=== PATIENT | male | born 1945 | race Caucasian/White ===

== ENCOUNTER 2022-06-18 06:38 | Day surgery (SDC) | payer OTHER, SELFPAY ==
[2022-06-04 09:38] VITALS: BMI 31.8
[2022-06-04 10:47] LABS: Hematocrit 39.5 % (39.0-52.0); Hemoglobin 12.6 g/dL (13.0-18.0); Mean Corp Hgb Conc. 31.9 g/dL (33.0-37.0); Mean Corpuscular Hgb 26.7 pg (27.0-31.0); Mean Corpuscular Volume 83.7 fL (80.0-94.0); Mean Platelet Volume 11.6 fL (7.4-10.4); Platelet Count 328 10^3/uL (130-400); Red Blood Cell Count 4.72 10^6/uL (4.70-6.10); Red Cell Dist. Width 13.5 % (11.5-14.5); White Blood Cell Count 7.3 10^3/uL (4.8-10.8)
[2022-06-04 11:21] LABS: Blood Urea Nitrogen 17 mg/dl (9-20); Calcium 9.3 mg/dl (8.4-10.2); Carbon Dioxide 27 mmol/L (22-30); Chloride 104 mmol/L (98-107); Estimated Creatinine Clearance 75 ml/min; Glomerular Filtration Rate > 60.0; Glucose 118 mg/dl (65-99); Potassium 4.9 mmol/L (3.5-5.1); Sodium 138 mmol/L (135-145)
[2022-06-18] VITALS (32 sets, daily range): BP systolic 108–174; BP diastolic 54–104; BMI 31.8
[2022-06-18 09:51] LABS: Glucose - Point of Care 94 mg/dl (65-99)
[2022-06-18] MEDS: CELEBREX 200 MG PO (09:53)
[2022-06-18] MEDS: TYLENOL 1000 MG PO (09:53)
[2022-06-18] MEDS: NORMOSOL-R/PLASMALYTE-A 1000 IV (09:54)
[2022-06-18 12:27] LABS: Glucose - Point of Care 97 mg/dl (65-99)
[2022-06-18] MEDS: NITROSTAT (SUBLINGUAL) 0.4 MG SL (12:43)
[2022-06-18] MEDS: DILAUDID 0.5 MG IV (12:56)
[2022-06-18] MEDS: LOW STRENGTH ASPIRIN 324 MG PO (13:48)
--- NOTE | 2022-06-18 14:02 | CON.CAR ---
Addendum entered and electronically signed by Porfirio Felix MD 06/18/22 15:10:
77-year-old male with history of coronary artery bypass grafting x2 back in 1993 who has not seen a blender machine operator in greater than 10 years, peripheral arterial disease, hypertension hypercholesterolemia, diabetes, CLAUDIA and dementia. Consult for chest
discomfort in the recovery room after arthroscopic knee surgery. Patient states he has been feeling fine and has had no issues with chest discomfort he does water walking in the pool and other exercise without symptoms. No recent complaints of
chest discomfort or shortness of breath. After returning to the recovery room from having arthroscopic surgery he reported midsternal chest discomfort which was an aching sensation. At times he felt the discomfort was worse with deep inspiration.
However he denied having shortness of breath. ECG showed some anterolateral ST changes which were new compared to the baseline ECG. Chest discomfort responded to nitroglycerin sublingual x1. He developed some recurrent chest discomfort and I gave
him a second nitroglycerin and patient probably had relief of his symptoms. He was given 4 baby aspirin and is placed on IV nitro. Currently chest pain-free and ECG shows sinus rhythm with improved ST changes. ECG now more consistent with
baseline ECG. Of note patient is not on aspirin at home but is maintained on Plavix 75 mg a day which was held prior to surgery.
-Overall symptoms consistent with angina. I reviewed issues with the patient and and explained the challenges in treating patient when he is immediately in the postoperative period for now we will just continue with aspirin nitrates. Would
hold off on IV heparin due to the increased risk of bleeding in a patient who is immediately postop. However if the patient becomes more unstable then would need to consider other measures including cardiac catheterization.
-Admit to IVU
-Serial troponins
-IV nitro
-Aspirin
-Statin
-Adequate postoperative pain control
Original Note:
Consultation
Consultation Request
Date/Time Consultation Requested: 06/18/22 13:45
Date/Time Consultation Performed: 06/18/22 13:50
Requesting Provider: Dr. Youngblood
Performing Provider: SEEMA Ayala
Reason for Consultation: Chest Pain
Medical History
-
Chief Complaint: Right Knee Pain
History of Present Illness:
Víctor Jimenez is a 77 year old male with CAD (s/p CABG), hypertension, dyslipidemia, GERD, CKD stage II, type 2 diabetes mellitus, PAD, CLAUDIA, and recent diagnosis of dementia presented today for scheduled right meniscus repair with Dr. Meyers.
Operative report is still pending per verbal report no intraoperative complications. He arrived in PACU complaining of chest discomfort. He reports it is a mid sternal, anterior, chest ache. This does not radiate. He reports associated shortness
of breath. He denies symptoms of nausea, diaphoresis, and palpitations. EKG shows some anterolateral changes. Cardiology has been called urgently to the bedside to evaluate patient.
He previously followed with Dr. Colmeanres but it appears he has not been seen in the office since 2011.
Past Medical History
Past Medical History: CAD, Cancer (prostate), GERD, HTN, Hypercholesterolemia, NIDDM, Renal Failure (CKD) and Other (PAD, CLAUDIA, vascular dementia)
Past Surgical History: Cardiac (CABG)
Social History
Tobacco: Former Smoker
Alcohol: Occasional
Drug: None
Personal:
Living: With Family
Employment: Retired
Family History
Family History: Reviewed & Not Pertinent
Allergies / Home Medications
Allergy/AdvReac Type Severity Reaction Status Date / Time
codeine Allergy CAUSES HIM Verified 06/18/22 09:27
TO SLEEP
FOR LONG
PERIODS OF
TIME
diazepam Allergy HIGHLY Verified 06/18/22 09:27
SENSITIVE
TO EFFECTS
Medication Instructions Recorded Confirmed Type
atorvastatin 10 mg tablet 20 mg PO DAILY High cholesterol 02/10/18 06/18/22 History
omeprazole 20 mg capsule,delayed 20 mg PO DAILY Gastrointestinal 02/10/18 06/18/22 History
release issue
quinapril 40 mg tablet 40 mg PO DAILY Blood pressure 02/10/18 06/18/22 History
verapamil 180 mg tablet,extended 180 mg PO DAILY Blood pressure 02/10/18 06/18/22 History
release
acetaminophen 325 mg tablet 650 mg PO Q4HPRN PRN mild pain 02/16/18 06/18/22 Rx
clopidogrel 75 mg tablet 75 mg PO DAILY 30 days 08/30/18 06/18/22 Rx
donepezil 10 mg tablet 10 mg PO DAILY 06/15/22 06/18/22 History
glimepiride 4 mg tablet 4 mg PO DAILY 06/15/22 06/18/22 History
semaglutide 0.25 mg or 0.5 mg (2 0.5 mg SC WEEKLY 06/15/22 06/18/22 History
mg/1.5 mL) subcutaneous pen
injector (Ozempic)
Review of Systems
-
History Source: Patient
All other systems: Negative unless noted
Cardiac: Chest Pain
Physical Exam
Vital Signs
Temp Pulse Resp BP Pulse Ox
97.3 F 74 15 159/71 100
06/18/22 12:17 06/18/22 13:30 06/18/22 13:30 06/18/22 13:30 06/18/22 13:30
Physical Exam
General: Well Developed, Well Nourished, No Apparent Distress and Comfortable
HEENT: Normocephalic and Moist Mucous Membranes
Respiratory: Clear and Non Labored Respirations
Cardiac: S1/S2, Regular Rhythm and Peripheral Edema (RLE)
Breast: Deferred by me
GI: Soft, Non Tender, Non Distended and Normal Bowel Sounds
Rectal: Deferred by Provider
Genito-urinary: No Costovertebral Tender
Musculoskeletal: No Clubbing and No Cyanosis
Skin: Warm and Dry
Neuro: AO x 3
Psych: Calm
Impression / Plan
-
Complex Tear of Right Medial Meniscus S/P Repair 06/18/[address] Meyers - per Ortho Surgery
Chest Pain
-Dull ache, no radiation, some associated SOB
-EKG with anterolateral changes
-S/P SL NTG, NTG gtt ordered
-ASA 324mg chewable x 1 now
-STAT troponin
CAD
-2V CABG 03/1994
-[facility] 12/2006: 100% proximal LAD, 30% mCx, 60% ostial OM1, 80% mid OM1, 60% mRCA, 100% ostial PDA, grafts patent
-He is on clopidogrel for his PAD, he does not take daily ASA
HTN - stable, follow on nitroglycerin
HLD
-Lipid panel (12/2021); TC 131, HDL 47, LDL 64, TG 111
-Continue atorvastatin 20mg for now
Type II DM - last Hgba1c 7.8% (12/2021), per primary
PAD, significant on the RLE - managed by Dr. Morrison
Vascular dementia - on donepezil
Data Reviewed
-
EKG: Tracing Personally Visualized and interpreted (As documented above)
Medical Tests (Nuc Med, Echo etc): Report Reviewed by me ([facility] as above)
Labs: Labs Reviewed by me
Old Records: Reviewed
[2022-06-18] MEDS: NITROGLYCERIN PREMIX 250 IV (14:03)
[2022-06-18 14:15] LABS: Hematocrit 38.1 % (39.0-52.0); Hemoglobin 12.3 g/dL (13.0-18.0); Mean Corp Hgb Conc. 32.3 g/dL (33.0-37.0); Mean Corpuscular Hgb 26.5 pg (27.0-31.0); Mean Corpuscular Volume 82.1 fL (80.0-94.0); Mean Platelet Volume 11.4 fL (7.4-10.4); Platelet Count 243 10^3/uL (130-400); Red Blood Cell Count 4.64 10^6/uL (4.70-6.10); Red Cell Dist. Width 13.8 % (11.5-14.5); White Blood Cell Count 6.1 10^3/uL (4.8-10.8)
[2022-06-18 14:24] LABS: Blood Urea Nitrogen 13 mg/dl (9-20); Calcium 8.9 mg/dl (8.4-10.2); Carbon Dioxide 23 mmol/L (22-30); Chloride 105 mmol/L (98-107); Estimated Creatinine Clearance 75 ml/min; Glomerular Filtration Rate > 60.0; Glucose 117 mg/dl (65-99); Potassium 4.4 mmol/L (3.5-5.1); Sodium 138 mmol/L (135-145)
[2022-06-18 14:35] LABS: Troponin I < 0.012 ng/ml
--- NOTE | 2022-06-18 15:33 | HPS.HSE ---
Family Physician
-
Family Physician: Ngozi Avila
Chief Complaint
-
chest pain
History of Present Illness
77 year old M with PMH s/f CAD s/p CAGB 1993, HTN, HLD, NIDDM, CKD, PAD s/p R femoral endarterectomy and vascular stenting, recent reported diagnosis of dementia, presents on 06/18/22 for out-patient R meniscus surgery and being admitted for
evaluation of post-operative chest pain.
Patient seen and examined at bedside in PACU. Patient is awake, in no distress and currently has no acute complaints. Denies any chest pain currently. Confirms that while in PACU patient developed pain in epigastric area, denies any radiating pain.
Denies any associated SOB, nausea/vomiting, diaphoresis. He does not think that this chest pain is similar to the chest pain that he was experiencing prior to CABG.
Medical History
Past Medical History
Past Medical History: Reports CAD, HTN, Hypercholesterolemia and NIDDM
Additional Past Medical History:
CAGB 1993, HTN, HLD, NIDDM, CKD, PAD s/p R femoral endarterectomy and vascular stenting, recent reported diagnosis of dementia
Past Surgical History: Reports Cardiac, Orthopedic and Other (vascular )
Social History
Tobacco: Former Smoker
Alcohol: Occasional
Family History
Family History: Not pertinent
Allergies / Home Medications
Allergies reflects when Allergies were last updated in [facility] [place].
Home Medications with original date entered in [facility] [place]
Allergy/Medication List:
as listed
Review of Systems
-
History Source: Patient
A 12 point ROS was completed and negative except as noted: Yes
Physical Exam
Vital Signs
Vital Signs
Temp Pulse Resp BP Pulse Ox
97.3 F 78 12 145/69 99
06/18/22 12:17 06/18/22 14:45 06/18/22 14:45 06/18/22 14:45 06/18/22 14:45
Physical Exam
General: No Apparent Distress
HEENT: NormoCephalic and Anicteric
Respiratory: Clear; No Wheezes
Cardiac: S1/S2 and Regular Rhythm; No Murmur
Breast: Deferred by me
GI: Soft, Non Tender and Non Distended
Rectal: Deferred by Provider
Genito-urinary: Deferred by me
Musculoskeletal: No Clubbing, No Cyanosis and Edema, Right Lower Extremity (pitting RLE edema )
Skin: Other (mild erythema RLE )
Neuro: Awake
Psych: Calm
Laboratory Results
-
06/18/22 13:50
06/18/22 13:50
Laboratory Results
Troponin I < 0.012 ng/ml 06/18/22 13:50
Data Reviewed
-
Medical Tests (Nuc Med, Echo, EKG etc): Image Personally Visualized and interpreted
Lab Data: Labs Reviewed by me (cbc, bmp )
Impression/Plan
-
IMPRESSION:
77 year old M with PMH s/f CAD s/p CAGB 1993, HTN, HLD, NIDDM, CKD, PAD s/p R femoral endarterectomy and vascular stenting, recent reported diagnosis of dementia, presents on 06/18/22 for out-patient R meniscus surgery and being admitted for
evaluation of post-operative chest pain.
PLAN:
- admit to IVU
- patient currently hemodynamically and clinically stable, no chest pain currently
- appreciate input and recommendations from cardiology - noted that chest pain responded to nitroglycerin SL x 1. Nitroglycerin infusion started in PACU. Continue aspirin 325 mg daily. Will hold home plavix for now. No heparin infusion at this time
per cardiology.
- trend troponin and EKG Q4 hours, first troponin negative
- continue statin
- hold home hypoglycemic agents, cover with SSI
- patient states that he is no longer taking donepezil
- continue remainder of home medications
FEN: cardiac
DVT ppx: lovenox
Code: full, confirmed on admission
[2022-06-18 16:45] LABS: Glucose - Point of Care 142 mg/dl (65-99)
--- NOTE | 2022-06-18 16:58 | CM ---
Chart reviewed. Met with patient, and daughter. Patient is very active independent of ADLs, lives with his in a [address], [address], and will occasionally use a cane. He does have a walker at home. Plan currently with no discharge needs.
Patient denying use of VN. Plan is patient will be discharge home with no needs.
[2022-06-18 18:35] LABS: Troponin I 0.018 ng/ml
[2022-06-18] MEDS: LOVENOX 40 MG SC (18:40)
--- NOTE | 2022-06-18 19:06 | PTCARENOTE ---
Pt arrived in PACU from OR, sedated but arouseable. ST depression noted on heart monitor, and as soon as pt could speak, reported chest pain immediately. Dr Butler notified, 12 lead EKG done, Dr Butler in to see pt, Ntg 0.4 mg SL given and Dilaudid
0.5 mg iv w/relief of chest pain. STdepression resolved, BP improved. By 1400 sx returned , Dr Felix in to see pt, Ntg gtt started titrated up to 20 mcs/min gradually, pt chest pain free since 1400. Hospitalist in to see pt , admitted to IVU,
family updated by Dr Felix.
--- NOTE | 2022-06-18 19:27 | PTCARENOTE ---
Rec'd Pt 1645, A,A+O, forgetful, denies pain, R knee yanira wrap intact, +2 Lower leg edema. Neurovascular check to RLE WNL.
[2022-06-18] MEDS: COLACE 100 MG PO (20:39)
[2022-06-18] MEDS: SENOKOT 17.2 MG PO (20:39)
[2022-06-18 20:55] LABS: Glucose - Point of Care 295 mg/dl (65-99)
--- NOTE | 2022-06-18 21:30 | PTCARENOTE ---
pt pleasant and cooperative. aaox3 but forgetful at times. denies knee pain or discomfort at this time. moving right knee without difficulty. yanira bandage intact. right leg with +2 edema. elevated on pillow. nerovascular checks wnl. pt denies chest
pain or discomfort. nitro drip infusing at 20mcg. pt states he is hungry because he did not eat all day. oxed lunch given to pt.no acute distress noted.
[2022-06-18 23:31] LABS: Troponin I 0.021 ng/ml
[2022-06-19] VITALS (7 sets, daily range): BP systolic 126–166; BP diastolic 59–87
[2022-06-19] MEDS: MAALOX 30 ML PO (04:08)
[2022-06-19 04:16] LABS: Hemoglobin 11.2 g/dL (13.0-18.0); Mean Corp Hgb Conc. 32.9 g/dL (33.0-37.0); Mean Corpuscular Hgb 26.5 pg (27.0-31.0); Mean Corpuscular Volume 80.6 fL (80.0-94.0); Mean Platelet Volume 11.3 fL (7.4-10.4); Platelet Count 248 10^3/uL (130-400); Red Blood Cell Count 4.22 10^6/uL (4.70-6.10); Red Cell Dist. Width 13.7 % (11.5-14.5); White Blood Cell Count 7.9 10^3/uL (4.8-10.8)
--- NOTE | 2022-06-19 04:45 | PTCARENOTE ---
pt requesting tums. states he gets reflux when he lies in bed. maalox already ordered and given with relief.
[2022-06-19 04:55] LABS: Blood Urea Nitrogen 19 mg/dl (9-20); Carbon Dioxide 26 mmol/L (22-30); Chloride 107 mmol/L (98-107); Estimated Creatinine Clearance 96 ml/min; Glomerular Filtration Rate > 60.0; Glucose 159 mg/dl (65-99); Potassium 4.3 mmol/L (3.5-5.1); Sodium 138 mmol/L (135-145)
[2022-06-19 05:09] LABS: Troponin I 0.017 ng/ml
--- NOTE | 2022-06-19 07:32 | W.PN.CARD.2 ---
Today's Communication / Plan
-
-Continue aspirin and IV nitro.
-If recurrent pain will add heparin. Patient would have some increased risk due to recent surgery but these issues have been reviewed with Dr. Meyers. We agreed IV heparin could be used if needed but since patient was pain-free on medical therapy
opted not to start heparin yesterday.
-Plan for cardiac catheterization on Tuesday
.
Assmnt/Subjective-Int Hx
-
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
discomfort in the recovery room after arthroscopic knee surgery.� Patient states he has been feeling fine and has had no issues with chest discomfort he does water walking in the pool and other exercise without symptoms.� No recent complaints of
chest discomfort or shortness of breath.� After returning to the recovery room from having arthroscopic surgery he reported midsternal chest discomfort which was an aching sensation.� Chest discomfort responded to nitroglycerin sublingual x1.� He
developed some recurrent chest discomfort and I gave him a second nitroglycerin and patient probably had relief of his symptoms.� He was given 4 baby aspirin and is placed on IV nitro.� ECG improved
CP/angina -
-postoperative angina 06/18/2022 in recovery room after arthroscopic knee surgery.
-Patient had transient ECG changes which improved. ECG 06/19/2022 with residual T wave abnormality anteriorly
-Peak troponin 0.021
-Continue aspirin and IV nitro.
-If recurrent pain will add heparin. Patient would have some increased risk due to recent surgery but these issues have been reviewed with Dr. Meyers. We agreed IV heparin could be used if needed but since patient was pain-free on medical therapy
opted not to start heparin yesterday.
-Plan for cardiac catheterization on Tuesday
.
Postop knee surgery. Issues reviewed with Dr. Meyers yesterday. Can initiate anticoagulation if needed
HTN - stable, follow on nitroglycerin
HLD -statin
-
Type II DM - last Hgba1c 7.8% (12/2021), per primary
PAD, significant on the RLE - managed by Dr. Morrison
Vascular dementia - on donepez
Interval History
Interval History
Date of Service: June 19, 2022
Chief Complaint
-
Chief Complaint: CAD F/U
Review of Systems
Review of Systems
Review of Systems: Negative for Chest Pain, Negative for Dyspnea and Neg Nausea +/or Vomiting
Physical Exam
Vital Signs
Vital Signs
Temp Pulse Resp BP Pulse Ox
97.9 F 71 17 126/73 98
06/19/22 02:37 06/19/22 05:45 06/19/22 02:37 06/19/22 02:39 06/19/22 02:37
Body Mass Index (BMI): 31.8
Physical Exam
Constitutional: No acute distress
EENT: Anicteric
Cardiovascular: Rhythm & rate is regular
Respiratory: Respiratory effort normal
GI: Soft
Neuro/Psych: Alert
Other: Other (Right lower extremity, knee postop mild lower extremity edema)
Data Reviewed
-
Results:
I&O
06/17/22 06/18/22 06/19/22 06/20/22
06:59 06:59 06:59 06:59
Intake Total 102 / 102
Output Total 350 / 350
Balance -248 / -248
EKG Tracings: Tracing reviewed
Telemetry Tracings: I personally reviewed
Echocardiogram: Report reviewed
Medical Test Reports: I reviewed
Labs:
06/19/22 04:01
06/19/22 04:01
LAB Results
06/18/22 06/18/22 06/18/22
13:50 18:05 23:00
Troponin I < 0.012 0.018 D 0.021
06/19/22
04:01
Troponin I 0.017
Magnesium 2.0 mg/dl (1.6-2.3) 06/19/22 04:01
Reviewed with clinician: Nurse
--- NOTE | 2022-06-19 08:24 | W.PN.HOSP.TC ---
Today's Communication/Plan
-
continue asa and IV nitro, [facility] Tuesday
Assessment / Plan
Assessment / Plan
77 year old M with PMH s/f CAD s/p CAGB 1993, HTN, HLD, NIDDM, CKD, PAD s/p R femoral endarterectomy and vascular stenting, recent reported diagnosis of dementia, presents on 06/18/22 for out-patient R meniscus surgery and being admitted for
evaluation of post-operative chest pain.
PLAN:
- hemodynamically and clinically stable, no chest pain
- appreciate input and recommendations from cardiology - continue aspirin and IV nitro. For [facility] Tuesday06/21/22. Continue home verapamil, hold home ACEI while on nitro.
- continue statin
- troponin peaked overnight
- per ortho WBAT RLE, orthopedic surgery o/p follow up in 2 weeks. oxycodone prn
- hold home hypoglycemic agents, cover with SSI
- patient states that he is no longer taking donepezil�
- continue remainder of home medications
FEN: cardiac
DVT ppx: lovenox
Code: full, confirmed on admission
Anticipated Discharge: > 48 hours
Subjective/Interval History
-
Date of Service: June 19, 2022
no acute events overnight
patient seen and examined at bedside
he is awake, in no distress, no complaints
Objective Data
-
Labs:
Laboratory Results
06/19/22 06/19/22
04:01 04:01
WBC 7.9
Hgb 11.2 L
Hct 34.0 L
Plt Count 248
Sodium 138
Potassium 4.3
Chloride 107
Carbon Dioxide 26
BUN 19
Creatinine 0.7
Glucose 159 H
Calcium 9.0
Vital Signs:
Vital Signs
Temp Pulse Resp BP Pulse Ox
97.7 F 71 17 126/73 98
06/19/22 07:52 06/19/22 05:45 06/19/22 02:37 06/19/22 02:39 06/19/22 02:37
I&O
06/18/22 06/19/22 06/20/22
06:59 06:59 06:59
Intake Total 102 / 102
Output Total 350 / 350
Balance -248 / -248
Review of Systems
-
History Source: Patient
All other systems: Reviewed and negative
Physical Exam
-
General: No Apparent Distress
HEENT: Normocephalic and Atraumatic
Respiratory: Clear to Auscultation; Negative Wheezes
Cardiac: Regular Rhythm and S1/S2
Breast: Deferred by me
GI: Soft, Nontender and Nondistended
Rectal: Deferred by Provider
Genito-urinary: Deferred by me
Musculoskeletal: No Clubbing, No Cyanosis, No Edema and Other (diminished R DP pulse)
Skin: Warm and Other (mild chronic erythema above R ankle)
Neuro: Awake
Psych: Calm
Data Reviewed
-
Labs: Labs Reviewed by me (cbc, bmp, troponin )
[2022-06-19 08:36] LABS: Glucose - Point of Care 107 mg/dl (65-99)
[2022-06-19] MEDS: CALAN EXTENDED RELEASE 180 MG PO (08:56)
[2022-06-19] MEDS: LIPITOR 20 MG PO (08:56)
[2022-06-19] MEDS: SENOKOT 17.2 MG PO (08:56)
[2022-06-19] MEDS: ASPIR LOW (ENTERIC COATED) 81 MG PO (08:56)
[2022-06-19] MEDS: PROTONIX 40 MG PO (08:57)
[2022-06-19] MEDS: COLACE 100 MG PO (08:58)
--- NOTE | 2022-06-19 12:12 | W.PN.ORTHO ---
Today's Communication / Plan
-
Assessment
.
Distal Motor Intact: Yes
Dressing:
Clean, dry and intact.
Assessment:
77M POD1 sp right knee arthroscopic partial meniscectomy admitted for EKG changes and angina symptoms. He is doing well clinically. Reviewed cardiology note. Pain is well controlled. Dispo per medical/cardiology team. WBAT RLE. Dressing to remain in
place. He will follow up with Dr. Meyers in 2 weeks for wound check.
Jesus Wells MD
Plan
.
Activity:
Out of bed.
PT/OT
Subjective
.
.:
Patient resting comfortably.
Vital Signs and Labs
.
Vital Signs and Labs:
Lab Results
06/19/22 04:01
06/19/22 04:01
Temp Pulse Resp BP Pulse Ox
97.4 F 79 20 154/87 99
06/19/22 11:38 06/19/22 11:38 06/19/22 11:38 06/19/22 07:38 06/19/22 11:38
Physical Exam
-
Resting comfortably in bed. Surgical dressings CDI. Fires ehl/fhl/ta/gs; silt ehl/fhl/ta/gs. Toes wwp
[2022-06-19 13:21] LABS: Glucose - Point of Care 155 mg/dl (65-99)
--- NOTE | 2022-06-19 14:56 | PTCARENOTE ---
06/19/22 0800 Received patient in bed with IV Nitroglycerin infusing at 20mcg/kg/min (3ml/hr). supervisor dry paste reading NSR. Pt AAO x3, forgetful at times (Hx dementia). Reviewed plan of care. VSS. Will continue to monitor throughout shift.
[2022-06-19 16:21] LABS: Glucose - Point of Care 130 mg/dl (65-99)
[2022-06-19] MEDS: LOVENOX 40 MG SC (17:29)
[2022-06-19] MEDS: SENOKOT PO (21:10)
[2022-06-19] MEDS: COLACE PO (21:10)
[2022-06-19 22:37] LABS: Glucose - Point of Care 106 mg/dl (65-99)
[2022-06-20] VITALS (8 sets, daily range): BP systolic 139–192; BP diastolic 64–87; BMI 31.6
--- NOTE | 2022-06-20 00:01 | PTCARENOTE ---
Pt awake,alert forgetful. Bed alarm placed because of pts impulsive behavior. Often gets oob to go to bathroom forgetting he's attached to iv.
Gait is steady when up with nursing. RLE with yanira bandage in place. + 2 swelling noted below the knee. Elevated on pillow while in bed. pedal pulses good by Doppler. Pt denies knee pain. Sinus on telemetry. Pt denies cp.
--- NOTE | 2022-06-20 05:10 | PTCARENOTE ---
PT awoken around 0430, bed alarm sounding when pt attempted to exit bed without assistance. When nursing arrived at bedside pt was frightened, anxious and extremely confused. Pt remains confused at this time oriented to name and birthday only. Pt
unable to give year, his own age(although close). Pt was unaware he had surgery. When hearing voices of nurses in [place] pt became frightened, calling out for his . Assisted calling on cell after pt was unable to reorient . Pt's stated
she would drive right over. Nursing remaining at bedside until arrives.
[2022-06-20 05:25] LABS: Hematocrit 36.4 % (39.0-52.0); Hemoglobin 11.4 g/dL (13.0-18.0); Mean Corp Hgb Conc. 31.3 g/dL (33.0-37.0); Mean Corpuscular Hgb 26.7 pg (27.0-31.0); Mean Corpuscular Volume 85.2 fL (80.0-94.0); Mean Platelet Volume 11.4 fL (7.4-10.4); Platelet Count 258 10^3/uL (130-400); Red Blood Cell Count 4.27 10^6/uL (4.70-6.10); Red Cell Dist. Width 14.1 % (11.5-14.5); White Blood Cell Count 9.3 10^3/uL (4.8-10.8)
[2022-06-20 05:34] LABS: Blood Urea Nitrogen 16 mg/dl (9-20); Calcium 9.2 mg/dl (8.4-10.2); Carbon Dioxide 25 mmol/L (22-30); Chloride 108 mmol/L (98-107); Estimated Creatinine Clearance 84 ml/min; Glomerular Filtration Rate > 60.0; Glucose 93 mg/dl (65-99); Magnesium 2.1 mg/dl (1.6-2.3); Potassium 4.2 mmol/L (3.5-5.1); Sodium 138 mmol/L (135-145)
[2022-06-20 06:11] LABS: Glucose - Point of Care 87 mg/dl (65-99)
--- NOTE | 2022-06-20 06:27 | PTCARENOTE ---
Pt's came in at 0530 to pts bedside. pt reoriented slowly but pt is currently back at baseline. stated pt was diagnosed with dementia but he never reacted like this. At present pt is smiling and resting comfortably.
--- NOTE | 2022-06-20 07:35 | W.PN.CARD.2 ---
Today's Communication / Plan
-
Stable overnight with no recurrent angina.
Change IV nitro to Nitropaste
Plan for cardiac catheterization tomorrow. Note patient has significant peripheral arterial disease and prior revascularization by Dr. Morrison. Prior history of two-vessel bypass including RAMIREZ to the LAD. Left arm access may be preferred.
Assmnt/Subjective-Int Hx
-
77-year-old male with history of coronary artery bypass grafting x2 back in 1993 who has not seen a home visits nurse in greater than 10 years, peripheral arterial disease, hypertension hypercholesterolemia, diabetes, CLAUDIA and dementia.� Consult for chest
discomfort in the recovery room after arthroscopic knee surgery.� Patient states he has been feeling fine and has had no issues with chest discomfort he does water walking in the pool and other exercise without symptoms.� No recent complaints of
chest discomfort or shortness of breath.� After returning to the recovery room from having arthroscopic surgery he reported midsternal chest discomfort which was an aching sensation.� Chest discomfort responded to nitroglycerin sublingual x1.� He
developed some recurrent chest discomfort and I gave him a second nitroglycerin and patient probably had relief of his symptoms.� He was given 4 baby aspirin and is placed on IV nitro.� ECG improved
CP/angina -
-postoperative angina 06/18/2022 in recovery room after arthroscopic knee surgery.
-Patient had transient ECG changes which improved. ECG 06/19/2022 with residual T wave abnormality anteriorly
-Peak troponin 0.021
-Continue aspirin and IV nitro.
-If recurrent pain will add heparin. Patient would have some increased risk due to recent surgery but these issues have been reviewed with Dr. Meyers. We agreed IV heparin could be used if needed but since patient was pain-free on medical therapy
opted not to start heparin yesterday.
-Plan for cardiac catheterization on Tuesday
.
Postop knee surgery. Issues reviewed with Dr. Meyers yesterday. Can initiate anticoagulation if needed
HTN - stable, follow on nitroglycerin
HLD -statin
Dementia. Some confusion in the surveillance officer hours this morning. Patient was disoriented patient's came in and is currently at bedside and patient reoriented.-
Type II DM - last Hgba1c 7.8% (12/2021), per primary
PAD, significant on the RLE - managed by Dr. Morrison
Vascular dementia - on donepez
Interval History
Interval History
Date of Service: June 20, 2022
Chief Complaint
-
Chief Complaint: CAD F/U
Review of Systems
Review of Systems
Review of Systems: Negative for Chest Pain and Negative for Dyspnea
Physical Exam
Vital Signs
Vital Signs
Temp Pulse Resp BP Pulse Ox
98 F 63 20 192/70 97
06/20/22 07:28 06/20/22 05:15 06/20/22 07:28 06/20/22 04:47 06/20/22 07:28
06/19/22 06/20/22 06/21/22
06:59 06:59 06:59
Actual Weight 90.9 kg
Body Mass Index (BMI): 31.6
Physical Exam
Constitutional: No acute distress
Cardiovascular: Rhythm & rate is regular
Respiratory: Respiratory effort normal
GI: Soft
Data Reviewed
-
Results:
I&O
06/18/22 06/19/22 06/20/22 06/21/22
06:59 06:59 06:59 06:59
Intake Total 102 / 102 240 / 240
Output Total 350 / 350
Balance -248 / -248 240 / 240
Telemetry Tracings: I personally reviewed
Medical Test Reports: I reviewed
Labs:
06/20/22 05:07
06/20/22 05:07
LAB Results
06/18/22 06/18/22 06/18/22
13:50 18:05 23:00
Troponin I < 0.012 0.018 D 0.021
06/19/22
04:01
Troponin I 0.017
Magnesium 2.1 mg/dl (1.6-2.3) 06/20/22 05:07
Reviewed with clinician: Nurse and Other (Reviewed issues with patient's at bedside.)
[2022-06-20] MEDS: NITRO-BID 1 INCH TOPICAL ×4 (08:11→23:22)
[2022-06-20] MEDS: SENOKOT 17.2 MG PO (08:12)
[2022-06-20] MEDS: ASPIR LOW (ENTERIC COATED) 81 MG PO (08:12)
[2022-06-20] MEDS: COLACE 100 MG PO (08:12)
[2022-06-20] MEDS: CALAN EXTENDED RELEASE 180 MG PO (08:12)
[2022-06-20] MEDS: PROTONIX 40 MG PO (08:12)
[2022-06-20] MEDS: LIPITOR 20 MG PO (08:12)
--- NOTE | 2022-06-20 09:17 | W.PN.HOSP.TC ---
Today's Communication/Plan
-
[facility] tomorrow
Assessment / Plan
Assessment / Plan
77 year old M with PMH s/f CAD s/p CAGB 1993, HTN, HLD, NIDDM, CKD, PAD s/p R femoral endarterectomy and vascular stenting, recent reported diagnosis of dementia, presents on 06/18/22 for out-patient R meniscus surgery and being admitted for
evaluation of post-operative chest pain.
PLAN:
- hemodynamically and clinically stable, no chest pain
- appreciate input and recommendations from cardiology - continue aspirin and changed IV nitro to nitropaste . For [facility] Tuesday06/21/22. Continue home verapamil, hold home ACEI while on nitro.
- continue statin
- per ortho WBAT RLE, orthopedic surgery o/p follow up in 2 weeks. oxycodone prn
- hold home hypoglycemic agents, cover with SSI
- patient states that he is no longer taking donepezil�
- continue remainder of home medications
FEN: cardiac, NPO PMN
DVT ppx: lovenox
Code: full, confirmed on admission
Anticipated Discharge: > 48 hours
Subjective/Interval History
-
Date of Service: June 20, 2022
noted overnight event of confusion, no other acute events noted
patient seen and examined at bedside this morning, also present at bedside
patient is awake, in no distress, no acute complaints. No chest pain.
Objective Data
-
Labs:
Laboratory Results
06/20/22 06/20/22
05:07 05:07
WBC 9.3
Hgb 11.4 L
Hct 36.4 L
Plt Count 258
Sodium 138
Potassium 4.2
Chloride 108 H
Carbon Dioxide 25
BUN 16
Creatinine 0.8
Glucose 93
Calcium 9.2
Vital Signs:
Vital Signs
Temp Pulse Resp BP Pulse Ox
98 F 74 20 139/64 95
06/20/22 07:28 06/20/22 08:15 06/20/22 07:28 06/20/22 07:31 06/20/22 07:31
I&O
06/19/22 06/20/22 06/21/22
06:59 06:59 06:59
Intake Total 102 / 102 240 / 240
Output Total 350 / 350
Balance -248 / -248 240 / 240
Review of Systems
-
History Source: Patient
All other systems: Reviewed and negative
Physical Exam
-
General: No Apparent Distress
HEENT: Normocephalic and Atraumatic
Respiratory: Clear to Auscultation; Negative Wheezes
Cardiac: Regular Rhythm and S1/S2
Breast: Other
GI: Soft, Nontender and Nondistended
Rectal: Deferred by Provider
Genito-urinary: Deferred by me
Musculoskeletal: No Clubbing, No Cyanosis, Edema, Right Lower Extrem (RLE>LLE 1-2+ b/l pitting edema, distal extremities warm, b/l DP pulses intact ) and Edema, Left Lower Extrem
Skin: Warm
Neuro: Awake
Psych: Calm
Data Reviewed
-
Labs: Labs Reviewed by me (cbc, bmp )
--- NOTE | 2022-06-20 11:31 | PTCARENOTE ---
06/20/22 0810 Received patient resting comfortably in bed. Pt is pleasant, AAO x3. 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 Pt received with IV Nitroglycerin infusing at 20mcg/min (3ml/hr). VSS. Patient with no complaints this am.
Will monitor throughout shift.
[2022-06-20 12:31] LABS: Glucose - Point of Care 97 mg/dl (65-99)
--- NOTE | 2022-06-20 16:56 | PTCARENOTE ---
06/20/[address] Meyers in regards to patient's R knee Krish bandage. Per Dr. Meyers , the krish bandage can be removed. I removed the bandage and 4 x4 and there are 3 incisions with steri strips intact, no drainage, no ecchymosis. Patient
with no complaints of pain. Pt has Doppler pedal pulses present.
[2022-06-20 17:15] LABS: Glucose - Point of Care 115 mg/dl (65-99)
[2022-06-20] MEDS: LOVENOX 40 MG SC (17:15)
[2022-06-20] MEDS: SENOKOT PO (19:55)
[2022-06-20] MEDS: COLACE PO (19:55)
[2022-06-20 21:41] LABS: Glucose - Point of Care 138 mg/dl (65-99)
[2022-06-21] VITALS (14 sets, daily range): BP systolic 142–186; BP diastolic 64–83; BMI 31.0
[2022-06-21 03:18] LABS: Hematocrit 34.7 % (39.0-52.0); Hemoglobin 10.9 g/dL (13.0-18.0); Mean Corp Hgb Conc. 31.4 g/dL (33.0-37.0); Mean Corpuscular Hgb 26.5 pg (27.0-31.0); Mean Corpuscular Volume 84.4 fL (80.0-94.0); Mean Platelet Volume 11.5 fL (7.4-10.4); Platelet Count 232 10^3/uL (130-400); Red Blood Cell Count 4.11 10^6/uL (4.70-6.10); Red Cell Dist. Width 14.2 % (11.5-14.5); White Blood Cell Count 6.3 10^3/uL (4.8-10.8)
[2022-06-21 03:42] LABS: Blood Urea Nitrogen 17 mg/dl (9-20); Calcium 8.7 mg/dl (8.4-10.2); Carbon Dioxide 28 mmol/L (22-30); Chloride 107 mmol/L (98-107); Estimated Creatinine Clearance 96 ml/min; Glomerular Filtration Rate > 60.0; Glucose 89 mg/dl (65-99); Magnesium 1.9 mg/dl (1.6-2.3); Potassium 4.3 mmol/L (3.5-5.1); Sodium 138 mmol/L (135-145)
--- NOTE | 2022-06-21 04:06 | PTCARENOTE ---
Pt denies complaints of chest pain overnight. SR on tele. Pt occasionally wakes up anxious and confused to time and place but can be reoriented. Bed alarm on and activated. Pt uses call montoya at times. Reminded of plan of care, NPO since midnight for
cardiac cath today.
[2022-06-21] MEDS: NITRO-BID 1 INCH TOPICAL (06:30)
[2022-06-21] MEDS: CALAN EXTENDED RELEASE 180 MG PO (06:34)
[2022-06-21 06:47] LABS: Glucose - Point of Care 96 mg/dl (65-99)
--- NOTE | 2022-06-21 07:19 | W.PN.HOSP.TC ---
Today's Communication/Plan
-
Cath
possible dc pending on cath result
Assessment / Plan
Assessment / Plan
77 year old M with PMH s/f CAD s/p CAGB 1993, HTN, HLD, NIDDM, CKD, PAD s/p R femoral endarterectomy and vascular stenting, recent reported diagnosis of dementia, presents on 06/18/22 for out-patient R meniscus surgery and being admitted for
evaluation of post-operative chest pain.
# Angina
No recurrent chest pain
no sob
no cough
- hemodynamically and clinically stable,
- appreciate input and recommendations from cardiology - continue aspirin and Plavix. [facility] Tuesday06/21/22. Continue home verapamil.
- continue statin
# Primary HTN
no headache
no chest pain
c/w Verapamil
ok to hold ROSSI while pursuing heart cath.
# type II DM
no hypoglycemia
# PAD, significant on the RLE -
no evidence of limb ischemia
managed by Dr. Morrison
# Vascular dementia -
- patient states that he is no longer taking donepezil�
# Post Right Knee surgery
- per ortho WBAT RLE, orthopedic surgery o/p follow up in 2 weeks. oxycodone prn
FEN: cardiac, NPO PMN
DVT ppx: lovenox
Code: full, confirmed on admission
Anticipated Discharge: Within 24 hours
Subjective/Interval History
-
Date of Service: June 21, 2022
No chest pain
no sob
he wants to go home after cath if possible
Objective Data
-
Labs:
Laboratory Results
06/21/22 06/21/22
02:56 02:56
WBC 6.3
Hgb 10.9 L
Hct 34.7 L
Plt Count 232
Sodium 138
Potassium 4.3
Chloride 107
Carbon Dioxide 28
BUN 17
Creatinine 0.7
Glucose 89
Calcium 8.7
Vital Signs:
Vital Signs
Temp Pulse Resp BP Pulse Ox
98 F 78 18 153/82 98
06/21/22 06:44 06/21/22 09:00 06/21/22 06:44 06/21/22 06:48 06/21/22 02:47
I&O
06/20/22 06/21/22 06/22/22
06:59 06:59 06:59
Intake Total 240 / 240
Output Total 1075 / 1075
Balance 240 / 240 -1075 / -1075
Review of Systems
-
History Source: Patient
All other systems: Reviewed and negative
Physical Exam
-
General: Well Nourished, No Apparent Distress and Comfortable
HEENT: Atraumatic and Moist Mucous Membranes
Respiratory: Clear to Auscultation
Cardiac: S1/S2 and Murmur (right sided )
GI: Soft, Nontender and Nondistended
Rectal: Negative Maroon Stools
Genito-urinary: Clear Urine
Musculoskeletal: No Cyanosis and No Edema
Skin: Warm and Dry; Negative Rash
Neuro: AO x 3 and Nonfocal/Grossly Intact; Negative Slurred Speech or Facial Droop
Hematologic / Lymphatic: No Lymphadenopathy
Psych: Calm and Intact Judgement/Insight
[2022-06-21] MEDS: PROTONIX 40 MG PO (07:57)
[2022-06-21] MEDS: ASPIR LOW (ENTERIC COATED) 81 MG PO (07:57)
[2022-06-21] MEDS: LIPITOR PO (07:59)
[2022-06-21] MEDS: COLACE PO (08:00)
[2022-06-21] MEDS: SENOKOT PO (08:00)
--- NOTE | 2022-06-21 08:55 | PTCARENOTE ---
assumed care of pt from previous shift RN, sinus rhythm on tele, VSS, + peripheral pulses, +1 edema to lower extremities, pt denies CP or SOB. Lungs diminished bilaterally. Pt remains NPO for procedure, voiding spontaneously. PIV flushes easily.
Plan of care reviewed w pt and questions encouraged.
08:45 pt sent to [facility].
--- NOTE | 2022-06-21 10:34 | ITS.CL.ANGIO ---
Button Buttonhole Marker - Angioplasty
Angioplasty
Procedure Report:
CARDIAC CATHETERIZATION REPORT
Date of Procedure: 06/21/2022
Referring: Porfirio Felix M.D.
INDICATION: Unstable angina after orthopedic surgery.
PROCEDURE:
1. Left heart catheterization.
2. Coronary angiography.
3. Bypass angiography.
4. IFR of the proximal circumflex.
5. Successful PCI of the proximal circumflex.
ACCESS:
6 Malaysian left radial artery.
CATHETERS:
1. 5 Malaysian JEREMIAS.
2. 5 Malaysian JL 4.
3. 5 Malaysian JR4.
4. 6 Malaysian EBU 4.0 guide.
HEMODYNAMIC DATA
Weight (kg): 90.7
AO (s/d/x, mmHg): 154/65/100
LV (s/x mmHg): 157/17
LEFT VENTRICULOGRAPHY: Not performed.
CORONARY ANGIOGRAPHY
Dominance: Codominant.
Left Main: Normal size, trifurcating vessel. There is no coronary artery disease.
LAD: Normal size vessel giving rise to 1 significant diagonal. The vessel is chronically totally occluded in its proximal margin. The diagonal is occluded at its origin. The distal LAD is supplied by a patent RAMIREZ graft. The diagonal is
supplied by a patent vein graft.
Ramus: Small size vessel that is chronically totally occluded in its proximal third. The distal vessel supplied by collaterals from the bypass to diagonal.
Circumflex: Large size, codominant vessel giving rise to 1 large marginal then terminating as a partial LPDA supplying the proximal inferior interventricular septal perforators. There is a 70%, calcified lesion in the proximal circumflex,
immediately prior to the takeoff of OM1.
RCA: Normal size, codominant vessel. The vessel is diffusely diseased and chronically totally occluded at its distal margin. The RPDA supplies the distal inferior septal perforators and is supplied by collaterals from the obtuse marginal.
BYPASS GRAFT ANGIOGRAPHY
RAMIREZ to LAD: Normal size graft with end to side anastomosis to the distal LAD. There is no stenosis or evidence of graft degeneration.
SVG to D1: Normal size graft with aortic graft marker and end-to-side anastomosis to the first diagonal. There is no evidence of stenosis or graft degeneration.
INTERVENTION(S)
1. IFR of the 70% calcified circumflex lesion, demonstrating occlusive disease (iFR = 0.88).
2. Successful PCI of the 70% circumflex lesion (Xience Skypoint 3.5 x 15 KAREL, 3.5 x 8 KAREL, postdilated with a 3.5 x 15 NC balloon) with reduction in stenosis to 0%, maintaining VARUN-3 flow.
Narrative:
The decision was made to perform physiologic testing. The diagnostic catheter was removed over a wire and exchanged for a(n) 6 Malaysian EBU 4.0 guiding catheter. The guiding catheter was advanced into the ascending aorta and seated in the left main
coronary artery. Additional heparin was given to obtain an ACT greater than 250 seconds. An iFR wire was zeroed outside of the body, then inserted into the guiding sheath. The wire was advanced and the transducer was normalized just outside of the
guiding catheter tip. The wire was advanced into the distal circumflex. Three iFR measurements were taken. The lesion was determined to be occlusive (0.82). The Verrata wire was withdrawn but found to have significant drift on pullback. The wire
was rezeroed and readvanced. Three additional IFR measurements were taken, confirming that the lesion was occlusive (iFR = 0.88).
The decision was made to proceed with percutaneous coronary intervention. Additional heparin was given and a Power Turn Flex wire was advanced into the distal circumflex. The 70%, calcified proximal circumflex lesion was predilated with a 2.0 x 12
semi-compliant balloon to 12 yaakov. This semicompliant balloon was removed and a 3.0 x 12 semicompliant balloon was advanced. The lesion was dilated, but did not allow for balloon expansion with a significant waist. The 3.0 x 12 semicompliant
balloon was removed and a 3.0 x 12 noncompliant balloon was advanced. The lesion was dilated again, finally releasing at 20 yaakov. The noncompliant balloon was removed and a Xience Skypoint 3.5 x 15 drug-eluting stent was advanced. The stent was
deployed at 12 atmospheres. The stent balloon was removed. Review of angiography showed good stent apposition and expansion, though there was concerned that the stent had migrated backwards and the distal aspect of the lesion was not covered
adequately. The decision was made to extend the stented segment. A 3.5 x 8 drug-eluting stent was advanced. Meticulous care was taken while positioning the second stent. The distal aspect of the stent felt short of the bifurcation of the true
circumflex and obtuse marginal while the proximal margin of the stent sat within the distal aspect of the first stent with adequate overlap. The second stent was deployed at 12 yaakov. A 3.5 x 15 noncompliant balloon was advanced into the stent and
the stent was postdilated to 16 atmospheres. Angiography was performed in orthogonal views, confirming good stent expansion and an excellent angiographic result. The coronary wire was withdrawn and the guide was disengaged from the artery. The
catheter was removed over a standard J-wire.
Closure Device: Vascular band.
Radiation (mGy): 1373.05
DAP (cm2.Gy): 106.48
Fluoroscopy time (minutes): 12.5
CONCLUSIONS
1. 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
70%, densely calcified proximal circumflex lesion status post successful PCI (Xience Skypoint 3.5 x 15 KAREL, 3.5 x 8 KAREL, postdilated with a 3.5 x 15 NC balloon) with reduction in stenosis to 0%, maintaining VARUN-3 flow.
2. Mildly elevated filling pressures (LVEDP = 17 mmHg at 90.7 kg).
RECOMMENDATIONS:
1. Expectant management after cardiac catheterization via left radial approach.
2. Limited weight bearing on the left wrist for one week.
3. Dual antiplatelet therapy. Initially, the patient was given ticagrelor in the Button Buttonhole Marker. This will be converted to clopidogrel and aspirin tomorrow.
4. Guideline directed medical therapy as hemodynamics will tolerate.
5. Increase atorvastatin to 40 mg daily.
6. Echocardiogram ordered and pending.
7. Referral to cardiac rehab.
Copy to: Porfirio Felix M.D., Ngozi Avila M.D., Db Moss M.D., Dawson Meyers M.D.
Jeet Lee DO, FACC, FACP
--- NOTE | 2022-06-21 11:15 | W.PN.CARD.2 ---
Today's Communication / Plan
-
S/P catheterization and PCI.
DAPT. Initially got ticagrelor in the lab. Load with clopidogrel tomorrow morning.
Start aspirin 81 mg daily.
Start carvedilol 12.5 mg BID and monitor BP response.
Restart lower dose of ACEI.
Echocardiogram ordered and pending.
Increase atorvastatin to 40 mg daily.
Referral to cardiac rehab.
Assmnt/Subjective-Int Hx
-
Impression/Plan: 77-year-old male with history of coronary artery bypass grafting x2 back in 1993 (RAMIREZ to LAD, SVG to diagonal) lost to cardiology follow up, peripheral arterial disease, hypertension hypercholesterolemia, diabetes, CLAUDIA and
dementia admitted for chest pain/unstable angina after right meniscus repair.
#Chest pain/Unstable angina
-Postoperative angina 06/18/2022 in recovery room after arthroscopic knee surgery.
-ECG shows T wave in the anterolateral precordium, now improved.
-Peak troponin 0.021
-Cardiac catheterization today revealed patent bypass grafts (RAMIREZ to LAD, SVG to D1) to SAMPLE PULLER of LAD and D1, collateralization of a codominant RCA SAMPLE PULLER and a densely calcified, 70% proximal LCx lesion.
-iFR of LCx was positive (0.88) leading to successful PCI (overlapping Xience Skypoint 3.5 x 15 KAREL, 3.5 x 8 KAREL, post dilated with a 3.5 NC balloon).
-Patient was previously on clopidogrel for CVA/vascular cognitive impairment. He was given ticagrelor 180 mg at the time of PCI. We will re-convert to clopidogrel tomorrow.
-Aspirin 81 mg daily.
-Start carvedilol 12.5 mg BID.
-Echocardiogram ordered/pending.
-Referral to cardiac rehab (can be done after PT/OT for knee).
.
#Right medial meniscus tear
-S/P meniscus repair via Dr. Meyers, 06/18/2022.
-Further management per orthopedic surgery.
#HTN
-Hypertensive overnight.
-Continue verapamil.
-Discontinue nitroglycerin.
-Monitor response to carvedilol.
#HLD
-Increase atorvastatin to 40 mg daily.
-Goal LDL < 70.
#Dementia
-Some confusion in the sample card maker hours this morning. Patient was disoriented patient's came in and is currently at bedside and patient reoriented.
-Clopidogrel, donepezil.
-Other management per primary team.
#NIDDM2
-Last Hgba1c 7.8% (12/2021).
-Outpatient medications include semiglutide, glimepiride.
#PAD
-S/P Right common femoral to profunda to popliteal bypass.
-Left common iliac stent, possible chronic dissection (on prior CTA).
-[employer] [employer] DEAN of BTK popliteal/anterior tibial artery (08/31/2018).
Subjective/Interval History:
No acute events.
No subjective complaints.
Hypertensive to 180 mmHg.
DATA:
Cardiac catheterization/PCI, 06/21/2022:
CONCLUSIONS
1.� Codominant circulation with chronic total occlusion of the right coronary artery, chronic total occlusion of the LAD and diagonal with patent RAMIREZ and vein graft supply, a SAMPLE PULLER of the ramus collateralized by the obtuse marginal and an occlusive
70%, densely calcified proximal circumflex lesion status post successful PCI (Xience Skypoint 3.5 x 15 KAREL, 3.5 x 8 KAREL, postdilated with a 3.5 x 15 NC balloon) with reduction in stenosis to 0%, maintaining VARUN-3 flow.
2.� Mildly elevated filling pressures (LVEDP = 17 mmHg at 90.7 kg).
CTA Abdomen with runoff, 12/24/2020:
IMPRESSION:
1. � Advanced changes of peripheral arterial disease as described. Patent right femoral to profunda femoral jump graft. Patent right femoral to below-knee popliteal bypass graft. There is severe narrowing along the distal aspect of the graft and at
the distal anastomosis as above. One-vessel runoff on the right. Multifocal bilateral iliac narrowing. Multifocal significant stenoses of left superficial femoral and popliteal. Runoff on the left predominantly via peroneal with discontinuous
opacification of the anterior tibial.
2. � Marked edematous changes of bilateral calves, right greater than left. No signs of abscess or drainable collection.
3. � Diverticulosis without diverticulitis. Small fat-containing umbilical hernia. Additional chronic and incidental findings as above.
Interval History
Interval History
Date of Service: June 21, 2022
Chief Complaint
-
Chief Complaint: CAD F/U
Review of Systems
Review of Systems
Review of Systems: Negative for Chest Pain, Negative for Dyspnea, Negative for Palpitations and Neg Nausea +/or Vomiting
Physical Exam
Vital Signs
Vital Signs
Temp Pulse Resp BP Pulse Ox
36.6 C 78 18 153/82 98
06/21/22 11:03 06/21/22 09:00 06/21/22 06:44 06/21/22 06:48 06/21/22 02:47
06/19/22 06/20/22 06/21/22
11:59 11:59 11:59
Actual Weight 90.9 kg 89.2 kg
Body Mass Index (BMI): 31.0
Physical Exam
Constitutional: No acute distress and Comfortable
EENT: Anicteric and Moist mucous membranes
Cardiovascular: Rhythm & rate is regular, Pedal edema is absent, JVD pressure is normal, S1S2 is normal and Murmur/rub/gallop absent
Respiratory: Respiratory effort normal, Lungs clear to auscul., Wheeze Absent, Crackles Absent and Rhonchi Absent
GI: Soft, Distention absent, Flat, Non tender and Normal bowel sounds
Neuro/Psych: AO x 3
Data Reviewed
-
Results:
I&O
0206/19/22 06/20/22 06/21/22
11:59 11:59 11:59 11:59
Intake Total 102 / 102 240 / 240
Output Total 350 / 350 1075 / 1075
Balance -248 / -248 240 / 240 -1075 / -1075
EKG Tracings: Tracing reviewed
Telemetry Tracings: I personally reviewed
Title One Reading Teacher procedure: Image reviewed
Medical Test Reports: I reviewed
Labs:
06/21/22 02:56
06/21/22 02:56
LAB Results
06/18/22 06/18/22 06/18/22
13:50 18:05 23:00
Troponin I < 0.012 0.018 D 0.021
06/19/22
04:01
Troponin I 0.017
Magnesium 1.9 mg/dl (1.6-2.3) 06/21/22 02:56
Reviewed with clinician: Physician and Nurse
[2022-06-21 11:50] LABS: ACT-LR - POC 303 Seconds (113-149)
[2022-06-21 11:50] LABS: ACT-LR - POC 274 Seconds (113-149)
[2022-06-21 11:50] LABS: ACT-LR - POC 391 Seconds (113-149)
--- NOTE | 2022-06-21 12:18 | PTCARENOTE ---
received pt s/p shop laborer procedure, TR band to left radial site, EKG obtained, VS as ordered. Family at bedside and update on plan. Pt tolerated lunch tray. BG 303. Dr. Moss made aware.
--- NOTE | 2022-06-21 13:18 | PTCARENOTE ---
3ml air removed from radial band at 13:18
--- NOTE | 2022-06-21 13:59 | PTCARENOTE ---
3ml air removed
--- NOTE | 2022-06-21 15:29 | PTCARENOTE ---
R band removed, ecchymosis to site, dressing applied.
[2022-06-21 16:45] LABS: Glucose - Point of Care 145 mg/dl (65-99)
[2022-06-21] MEDS: LOVENOX 40 MG SC (16:48)
[2022-06-21] MEDS: COLACE 100 MG PO (19:39)
[2022-06-21] MEDS: SENOKOT 17.2 MG PO (19:40)
[2022-06-21] MEDS: COREG 12.5 MG PO (19:41)
[2022-06-21 22:16] LABS: Glucose - Point of Care 116 mg/dl (65-99)
--- NOTE | 2022-06-22 01:08 | PTCARENOTE ---
Pt oob in recliner chair most of evening shift. Ambulating in room, gait steady. Pt denies discomfort in right knee. steri strips intact. Left radial site with DDI, good pulse. R/A no c/o cp. Sinus on telemetry.
[2022-06-22 04:48] VITALS: BP 163/66
[2022-06-22 08:09] VITALS: BP 161/92
[2022-06-22 08:21] LABS: Glucose - Point of Care 119 mg/dl (65-99)
[2022-06-22] MEDS: PROTONIX 40 MG PO (08:21)
[2022-06-22] MEDS: COLACE 100 MG PO (08:21)
[2022-06-22] MEDS: ASPIR LOW (ENTERIC COATED) 81 MG PO (08:21)
[2022-06-22] MEDS: SENOKOT 17.2 MG PO (08:21)
[2022-06-22] MEDS: CALAN EXTENDED RELEASE 180 MG PO (08:21)
[2022-06-22] MEDS: COREG 12.5 MG PO (08:21)
[2022-06-22] MEDS: LIPITOR 40 MG PO (08:24)
[2022-06-22] MEDS: PLAVIX 600 MG PO (08:24)
--- NOTE | 2022-06-22 08:50 | PTCARENOTE ---
Received patient at change of shift. Patient pleasant. POC reviewed and continued. Assessment completed as documented. Tele-SR. No c/o chest pain or discomfort. Left radial site dressing; clean, dry and intact. Site ecchymotic. Patient
verbalizes no needs at this time. Comfort measures provided. Patient verbalizes no needs at this time.
--- NOTE | 2022-06-22 09:03 | W.PN.CARD.2 ---
Addendum entered and electronically signed by Lex Vizcaino MD 06/22/22 09:15:
-Patient can be discharged home from a cardiac standpoint; outpatient follow-up with Cardiology.
Original Note:
Today's Communication / Plan
-
-Cardiac catheterization yesterday revealed patent bypass grafts (RAMIREZ to LAD, SVG to D1) to DISPATCHER SERVICE OR WORK of LAD and D1, collateralization of a codominant RCA DISPATCHER SERVICE OR WORK and a densely calcified, 70% proximal LCx lesion.
-iFR of LCx was positive (0.88) leading to successful PCI (overlapping Xience Skypoint 3.5 x 15 KAREL, 3.5 x 8 KAREL, post dilated with a 3.5 NC balloon).
-Will increase Carvedilol to 25 mg BID.
-Echocardiogram yesterday revealed a slight reduction in LVEF at 45-50%.
-Will discontinue verapamil and increase carvedilol as above.
-Will start lisinopril 10 mg daily.
Assmnt/Subjective-Int Hx
-
Impression/Plan: 77-year-old male with history of coronary artery bypass grafting x2 back in 1993 (RAMIREZ to LAD, SVG to diagonal) lost to cardiology follow up, peripheral arterial disease, hypertension hypercholesterolemia, diabetes, CLAUDIA and
dementia admitted for chest pain/unstable angina after right meniscus repair.
#CAD/Chest pain/Unstable angina
-Postoperative angina 06/18/2022 in recovery room after arthroscopic knee surgery.
-Cardiac catheterization yesterday revealed patent bypass grafts (RAMIREZ to LAD, SVG to D1) to DISPATCHER SERVICE OR WORK of LAD and D1, collateralization of a codominant RCA DISPATCHER SERVICE OR WORK and a densely calcified, 70% proximal LCx lesion.
-iFR of LCx was positive (0.88) leading to successful PCI (overlapping Xience Skypoint 3.5 x 15 KAREL, 3.5 x 8 KAREL, post dilated with a 3.5 NC balloon).
-Patient was previously on clopidogrel for CVA/vascular cognitive impairment. He was given ticagrelor 180 mg at the time of PCI. Converted to clopidogrel today.
-Continue Aspirin 81 mg daily.
-Will increase Carvedilol to 25 mg BID.
Acute HFrEF (EF 45-50%):
-Echocardiogram yesterday revealed a slight reduction in LVEF at 45-50%.
-Will discontinue verapamil and increase carvedilol as above.
-Will start lisinopril 10 mg daily.
-Referral to cardiac rehab (can be done after PT/OT for knee).
.
#Right medial meniscus tear
-S/P meniscus repair via Dr. Meyers, 06/18/2022.
-Further management per orthopedic surgery.
#HTN
-Will increase carvedilol as above.
-Will start lisinopril 10 mg daily as above.
#HLD
-Increase atorvastatin to 40 mg daily.
-Goal LDL < 70.
-Will check lipid panel.
#NIDDM2
-Last Hgba1c 7.8% (12/2021).
-Outpatient medications include semiglutide, glimepiride.
-We will recheck hemoglobin A1c.
#PAD
-S/P Right common femoral to profunda to popliteal bypass.
-Left common iliac stent, possible chronic dissection (on prior CTA).
-TREER of BTK popliteal/anterior tibial artery (08/31/2018).
Subjective/Interval History:
No major events overnight. No cardiac complaints.
DATA:
Cardiac catheterization/PCI, 06/21/2022:
CONCLUSIONS
1.� Codominant circulation with chronic total occlusion of the right coronary artery, chronic total occlusion of the LAD and diagonal with patent RAMIREZ and vein graft supply, a DISPATCHER SERVICE OR WORK of the ramus collateralized by the obtuse marginal and an occlusive
70%, densely calcified proximal circumflex lesion status post successful PCI (Xience Skypoint 3.5 x 15 KAREL, 3.5 x 8 KAREL, postdilated with a 3.5 x 15 NC balloon) with reduction in stenosis to 0%, maintaining VARUN-3 flow.
2.� Mildly elevated filling pressures (LVEDP = 17 mmHg at 90.7 kg).
CTA Abdomen with runoff, 12/24/2020:
IMPRESSION:
1. � Advanced changes of peripheral arterial disease as described. Patent right femoral to profunda femoral jump graft. Patent right femoral to below-knee popliteal bypass graft. There is severe narrowing along the distal aspect of the graft and at
the distal anastomosis as above. One-vessel runoff on the right. Multifocal bilateral iliac narrowing. Multifocal significant stenoses of left superficial femoral and popliteal. Runoff on the left predominantly via peroneal with discontinuous
opacification of the anterior tibial.
2. � Marked edematous changes of bilateral calves, right greater than left. No signs of abscess or drainable collection.
3. � Diverticulosis without diverticulitis. Small fat-containing umbilical hernia. Additional chronic and incidental findings as above.
Interval History
Interval History
Date of Service: June 22, 2022
Chief Complaint
-
Chief Complaint: CAD F/U and Systemic Hypertension
Review of Systems
Review of Systems
Review of Systems: Negative for Chest Pain, Negative for Dyspnea and Negative for Palpitations
Physical Exam
Vital Signs
Vital Signs
Temp Pulse Resp BP Pulse Ox
97.7 F 77 16 163/66 95
06/22/22 08:00 06/22/22 04:48 06/22/22 08:00 06/22/22 04:48 06/22/22 08:00
06/21/22 06/22/22 06/23/22
06:59 06:59 06:59
Actual Weight 89.2 kg
Body Mass Index (BMI): 31.0
Physical Exam
Constitutional: No acute distress and Comfortable
EENT: Anicteric
Cardiovascular: Rhythm & rate is regular, Systolic murmur absent, Pedal edema present (trace) and S1S2 is normal
Respiratory: Respiratory effort normal and Lungs clear to auscul.
GI: Soft and Distention absent
Neuro/Psych: AO x 3
Other: Skin (warm, dry, intact)
Data Reviewed
-
Results:
I&O
06/20/22 06/21/22 06/22/22 06/23/22
06:59 06:59 06:59 06:59
Intake Total 240 / 240
Output Total 1075 / 1075 500 / 500
Balance 240 / 240 -1075 / -1075 -500 / -500
Telemetry Tracings: I personally reviewed (Sinus rhythm, rare PVCs)
Echocardiogram: Report reviewed (LVEF 45-50%)
Professional Bondsman procedure: Report reviewed (KAREL to proximal LCX)
Labs:
06/21/22 02:56
06/21/22 02:56
Magnesium 1.9 mg/dl (1.6-2.3) 06/21/22 02:56
[2022-06-22 09:27] LABS: HDL Cholesterol 44 mg/dl; LDL Cholesterol, Calculated 45 mg/dl; Total Cholesterol 107 mg/dl (50-199); Triglyceride 91 mg/dl (10-149); Very Low Density Lipoprotein 18 mg/dl (0-30)
--- NOTE | 2022-06-22 09:29 | W.PN.HOSP.TC ---
Addendum entered and electronically signed by Db Moss MD 06/22/22 14:41:
Acute heart failure with reduced ejection fraction.
Original Note:
Today's Communication/Plan
-
dc
Assessment / Plan
Assessment / Plan
77 year old M with PMH s/f CAD s/p CAGB 1993, HTN, HLD, NIDDM, CKD, PAD s/p R femoral endarterectomy and vascular stenting, recent reported diagnosis of dementia, presents on 06/18/22 for out-patient R meniscus surgery and being admitted for
evaluation of post-operative chest pain.
# Unstable angina after orthopedic surgery.
s/p Left heart catheterization and Coronary angiography that showed patent bypass grafts. Successful PCI of the proximal circumflex by Dr Lee on 06/21. Verapamil was dc
started on higher dose Coreg. Echocardiogram 06/21/22 revealed a slight reduction in LVEF at 45-50%..Started lisinopril 10 mg QD.
No recurrent chest pain
no sob
no cough, hemodynamically and clinically stable,
- appreciate input and recommendations from cardiology - continue aspirin and Plavix. [facility] Tuesday06/21/22. Continue home statin. Referral to cardiac rehab (can be done after PT/OT for knee).
# Primary HTN
no headache
no chest pain
c/w Coreg, lisinopril.
# type II DM
no hypoglycemia
# PAD, significant on the RLE -
no evidence of limb ischemia
managed by Dr. Morrison
# Vascular dementia -
- patient states that he is no longer taking donepezil�
# Post Right Knee surgery
- per ortho WBAT RLE, orthopedic surgery o/p follow up in 2 weeks. oxycodone prn
Code: full, confirmed on admission
Total discharge time spent to see the patient on the floor, examine the patient, review data and lab results, discuss discharge plan with patient, family, nursing staff, business transformation consultant, and bilingual case manager around 75 minutes.
Anticipated Discharge: Today
Subjective/Interval History
-
Date of Service: June 22, 2022
No chest pain
no sob
he wants to go home
Objective Data
-
Vital Signs:
Vital Signs
Temp Pulse Resp BP Pulse Ox
97.7 F 77 16 163/66 95
06/22/22 08:00 06/22/22 04:48 06/22/22 08:00 06/22/22 04:48 06/22/22 08:00
I&O
06/21/22 06/22/22 06/23/22
06:59 06:59 06:59
Output Total 1075 / 1075 500 / 500
Balance -1075 / -1075 -500 / -500
Review of Systems
-
History Source: Patient
All other systems: Reviewed and negative
Physical Exam
-
General: Well Nourished, No Apparent Distress and Comfortable
HEENT: Atraumatic and Moist Mucous Membranes
Respiratory: Clear to Auscultation
Cardiac: S1/S2 and Murmur (right sided )
GI: Soft, Nontender and Nondistended
Rectal: Negative Maroon Stools
Genito-urinary: Clear Urine
Musculoskeletal: No Cyanosis and No Edema. left wrist ( site of cath) , bruising no swelling.
Skin: Warm and Dry; Negative Rash
Neuro: AO x 3 and Nonfocal/Grossly Intact; Negative Slurred Speech or Facial Droop
Hematologic / Lymphatic: No Lymphadenopathy
Psych: Calm and Intact Judgement/Insight
[2022-06-22 09:51] LABS: Glucose - Point of Care 133 mg/dl (65-99)
[2022-06-22 12:44] LABS: Glycohemoglobin (HgbA1c) 6.1 % (4.0-5.6)
--- NOTE | 2022-06-22 13:17 | PN.CDI ---
Addendum entered and electronically signed by Db Moss MD 06/22/22 14:40:
Acute HFrEF is a valid diagnosis
Original Note:
CDI
- -
CDI:
Physician Documentation Request
Admit Date: 06/18/22 16:27
Dear Doctor Isa,
Clinical Indicators:
Pt admitted for chest pain following meniscus surgery.
The diagnosis of acute HFrEF was included in the signed cardiology progress note 06/22.
Pt does not appear to have received any diuretics.
No cxr or bnp resulted
06/22 note states 'Acute HFrEF (EF 45-50%): - Echocardiogram yesterday revealed a slight reduction in LVEF at 45-50%. - Will discontinue verapamil and increase Carvedilol as above. - Will start lisinopril 10 mg daily.
Please indicate in your progress notes if you are in agreement that the above diagnosis is valid for this patient:
____ - Acute HFrEF is a valid diagnosis (Please include it in your progress notes)
____ - Acute HFrEF is not a valid diagnosis for this patient
____ - Acute HFrEF is not yet confirmed but remains a suspected condition
____ - Other
Use of terms such as suspected, likely, concern for, or probable are acceptable for a diagnosis that is being evaluated, monitored or treated as if it exists and can be coded in the inpatient setting, when documented at the time of discharge.
Thank you,
Nathalia Moncada RN, BSN
CDI Specialist
tiger text
Please use your independent medical judgment in providing your response.
--- NOTE | 2022-06-22 13:28 | PTCARENOTE ---
Discharge orders placed. discharged teaching completed with patient and at bedside. IV site and tele pack removed. Patient discharged home via wheelchair with with; belongings, medlist, d/c instructions, prescriptions and educational
packet.
--- NOTE | 2022-06-22 14:37 | W.DCSUMMARY ---
Discharge Summary
Discharge Data
Date of Admission: 06/18/22
Date of Discharge: 06/22/22
-
Pending Results: No
Hospital Course
77 years old male presented with chest pain after undergoing orthopedic procedure to his knee. Patient was found to have unstable angina. He was evaluated by yard switch operator. He underwent left heart catheterization with successful stenting of the
proximal circumflex by Dr. Lee on June 17 without complications. Patient has chronic systolic heart failure with ejection fraction around 45 to 50%. Patient did not have recurrent chest pain. He was discharged on carvedilol in addition to
home dose of quinapril. Patient was able to ambulate and he was discharged home.
Discharge Plan
-
Patient Disposition: Home (Routine Discharge)
Discharge Diagnosis/Procedures: Status post angioplasty and stent x2 to Left Circumflex artery
Diet: Low Cholesterol
Driving Restrictions: No driving for 24 hours
Other Services: Cardiac Rehab
Stand Alone Forms: DC Instructions- Cath/EP Lab
Referrals:
[facility] [Outside]
[facility]. Cardiac Rehab [Outside] - 07/08/22 1:30 pm
(Cardiac Rehab Orientation/First Exercise appointment appointment is on 07/08/22 at 1:30 pm.
The Cardiac Rehab gym is located on the first floor of the [facility].)
Iqar Henley NP [Specified Professional Personl] - 07/06/22 3:20 pm (Post hospital cardiology followup appointment)
Ngozi Avila MD [Family Provider] -
Prescriptions:
New
aspirin 81 mg Tablet,Delayed Release (/Ec)
81 mg PO DAILY Qty: 30 0RF
carvedilol 12.5 mg Tablet
25 mg PO BID Qty: 60 0RF
nitroglycerin 0.4 mg Tablet, Sublingual
0.4 mg sublingual [id number] PRN (Reason: Chest Pain) Qty: 20 0RF
Continued
atorvastatin 10 MG tablet
20 mg PO DAILY
quinapril 40 MG tablet
40 mg PO DAILY
omeprazole 20 MG capsule,delayed release(DR/EC)
20 mg PO DAILY
acetaminophen 325 MG tablet
650 mg PO Q4HPRN PRN (Reason: mild pain) 0RF
clopidogrel 75 MG tablet
75 mg PO DAILY 30 Days 0RF
glimepiride 4 mg Tablet
4 mg PO DAILY
Ozempic 0.25 mg or 0.5 mg(2 mg/1.5 mL) Pen Injector
0.5 mg SC WEEKLY
Discontinued
verapamil 180 MG tablet extended release
180 mg PO DAILY
donepezil 10 mg Tablet
10 mg PO DAILY
Discharge Orders:
Discharge Patient (As Directed); Ordered 06/22/22
Ordered By: Db Moss
Care Plan Goals
Care Plan Goals:
Problem: Readiness for enhanced knowledge related to diagnosis and treatment plan
Goal: Understand your diagnosis and treatment plan needs, including medications if applicable.
Instructions: Know your diagnosis, underlying causes and treatment plan options, including medications if applicable. Consult with your health care team to learn about your diagnosis and treatment plan, including medications if applicable.
Discharge Date and Time
Discharge Date/Time: 06/22/22 13:56
--- NOTE | 2022-06-25 12:10 | ITS.CL.ANGIO ---
[employer] - Angioplasty
Angioplasty
Procedure Report:
CARDIAC CATHETERIZATION REPORT
Date of Procedure: 06/25/2022
Referring: Jaden Jaramillo M.D.
INDICATION: ST elevation myocardial infarction.
PROCEDURE:
1. Left heart catheterization.
2. Coronary angiography.
3. Bypass angiography.
4. Aspiration thrombectomy of acute circumflex stent thrombosis.
5. Intravascular ultrasound.
6. Aggressive balloon angioplasty of mildly underexpanded circumflex stent.
ACCESS:
6 Finnish right common femoral artery using a modified Seldinger technique with a micropuncture kit under ultrasound guidance.
CATHETERS:
1. 5 Finnish JL 4.
2. 5 Finnish JR4.
3. 5 Finnish JEREMIAS.
4. 6 Finnish EBU 4.0 guiding catheter.
HEMODYNAMIC DATA
Weight (kg): 88.9
AO (s/d/x, mmHg): 161/78/113
LV (s/x mmHg): 161/26
LEFT VENTRICULOGRAPHY: Not performed.
CORONARY ANGIOGRAPHY
Dominance: Codominant.
Left Main:� Normal size, trifurcating vessel.� There is no coronary artery disease.
LAD:� Normal size vessel giving rise to 1 significant diagonal.� The vessel is chronically totally occluded in its proximal margin.� The diagonal is occluded at its origin.� The distal LAD is supplied by a patent RAMIREZ graft.� The diagonal is
supplied by a patent vein graft.
Ramus: Small size vessel that is chronically totally occluded in its proximal third.� The distal vessel supplied by collaterals from the bypass to diagonal.
Circumflex: Large size, codominant vessel giving rise to 1 large marginal then terminating as a partial LPDA supplying the proximal inferior interventricular septal perforators. An acutely occluded, thrombotic stent is present in the proximal
margin of the circumflex.
RCA:� Normal size, codominant vessel.� The vessel is diffusely diseased.� The RPDA supplies the distal inferior septal perforators and is supplied by collaterals from the obtuse marginal.
BYPASS GRAFT ANGIOGRAPHY
RAMIREZ to LAD: Normal size graft with end to side anastomosis to the distal LAD.� There is no stenosis or evidence of graft degeneration.
SVG to D1: Normal size graft with aortic graft marker and end-to-side anastomosis to the first diagonal.� There is no evidence of stenosis or graft degeneration.
INTERVENTION(S)
1. Aspiration thrombectomy of acute in-stent thrombosis with resolution of occlusion and episcopal of VARUN-3 flow.
2. Intravascular ultrasound, demonstrating mildly underexpanded mid stent.
3. Successful aggressive balloon angioplasty of the entire circumflex stent (3.5 x 15 NC balloon to 18 yaakov).
4. Repeat intravascular ultrasound, demonstrating significant improvement in stent expansion with excellent stent apposition.
Closure Device: Sheath left in place for manual hold after ACT has fallen to < 180 seconds..
Radiation (mGy): 626.21
DAP (cm2.Gy): 56.6
Fluoroscopy time (minutes): 10.2
CONCLUSIONS
1. Codominant circulation with diffuse disease of the right coronary artery, chronic total occlusion of the LAD and diagonal with patent RAMIREZ and vein graft supply, a TELETYPE CLERK of the ramus collateralized by the obtuse marginal and acute, in-stent
thrombosis of previously placed proximal circumflex stent, status post aspiration thrombectomy and IVUS guided noncompliant balloon angioplasty (3.5 x 15 NC balloon to 18 yaakov) with resolution of the occlusion, episcopal of VARUN-3 flow and improved
stent expansion.
2. Severely elevated filling pressures (LVEDP = 26 mmHg at 88.9 kg).
RECOMMENDATIONS:
1. Expectant management after cardiac catheterization via right femoral approach.
2. Limited weight bearing for one week.
3. Dual antiplatelet therapy with aspirin and ticagrelor for at least 12 months, followed by aspirin indefinitely.
4. Check verify now to assess response to clopidogrel.
5. Furosemide for severely elevated filling pressures.
6. Repeat echocardiogram.
7. High-dose, high potency statin.
8. Serial ACT's. Pull sheath when ACT is less than 180 seconds.
Copy to: Ngozi Avila M.D., Porfirio Felix M.D.
Jeet Lee DO, FACC, FACP
== END 2022-06-22 13:56 | disposition home or self-care (01) ==
LOC: SDS 06:38
PROVIDERS: Internal Medicine; Nurse Practitioner Gerontology; Orthopaedic Surgery; ATTENDING PHYSICIAN Internal Medicine Cardiovascular Disease; CONSULT PHYSICIAN Internal Medicine Cardiovascular Disease; FAMILY PHYSICIAN Family Medicine
DX: S83.231A Complex tear of medial meniscus, current injury, right knee, initial encounter (principal); X58.XXXA Exposure to other specified factors, initial encounter; M22.41 Chondromalacia patellae, right knee; I25.110 Atherosclerotic heart disease of native coronary artery with unstable angina pectoris; I13.0 Hypertensive heart and chronic kidney disease with heart failure and stage 1 through stage 4 chronic kidney disease, or unspecified chronic kidney disease; I50.23 Acute on chronic systolic (congestive) heart failure; N18.2 Chronic kidney disease, stage 2 (mild); E11.22 Type 2 diabetes mellitus with diabetic chronic kidney disease; E78.00 Pure hypercholesterolemia, unspecified; E11.51 Type 2 diabetes mellitus with diabetic peripheral angiopathy without gangrene; F01.50 Vascular dementia, unspecified severity, without behavioral disturbance, psychotic disturbance, mood disturbance, and anxiety; G47.33 Obstructive sleep apnea (adult) (pediatric); Z87.891 Personal history of nicotine dependence; Z95.1 Presence of aortocoronary bypass graft; Z95.820 Peripheral vascular angioplasty status with implants and grafts
CPT/HCPCS: 29881; 36415; 80048; 80061; 82962; 83036; 83735; 84484; 85027; 93005; 93306; 93459; 93571; C1725; C1769; C1874; C1894; C9600; Q9967

== ENCOUNTER 2023-07-31 16:29 | Emergency (ER) | payer OTHER, SELFPAY ==
[2023-07-31 16:32] VITALS: BP 159/76
--- NOTE | 2023-07-31 17:38 | ED.MUSCINJ ---
HPI-Injury
General
Chief Complaint: Fall
Source: patient
Exam Limitations: none
Time Seen by Provider: 07/31/23 17:06
Nursing documentation reviewed up to this point in time: agreed with
Travel History
Have you had any contact with someone who has COVID-19?: No
Do you have any symptoms of coronavirus? Fever > 100 degrees, chills, cough, shortness of breath, sore throat, loss of taste or smell, muscle aches, or headache?: No
History of Present Illness-Injury
Is this injury a work related problem?: No
Is pt an associate of [facility]?: No
Initial Injury comments:
Fell while playing baseball. States he dove to the side to avoid being hit by ball. Fell onto his right side. COmplains of pain to right chest wall. Injury occurred this AM
Past History
Past History
ED Past Medical History: CAD, Cancer, HTN, Hypercholesterolemia, NIDDM and Other (DVT, PAD)
ED Past Surgical History: Cardiac (CABG 1993), Cholecystectomy and Other (Right femoral endarterectomy, vascular stenting bilateral lower extremities. Hernia repair)
Social History
Tobacco: Former smoker
Alcohol: Occasional
Drug: None
Personal:
Living: with family
Employment: Employed
Family History
Family History: Other (Noncontributory)
Review of Systems
Review of Systems
Allergies reviewed?: Yes
All Other Systems: ROS reviewed and negative except as documented in HPI and ROS
Constitutional: Reports no symptoms
EENT: Reports no symptoms
Respiratory: Reports no symptoms
Cardiac: Reports no symptoms
ABD/GI: Reports no symptoms
Musculoskeletal: Reports joint pain (Right chest wall pain)
Skin: Reports no symptoms
Neurological: Reports no symptoms
Psychiatric: Reports no symptoms
Musculoskeletal Injury Exam
Musculoskeletal Injury Exam
Right Chest:
Pain with Movement?: Moderate
Tender to palpation?: Moderate
Soft tissue swelling?: None
External deformity and angulation?: None
Joint effusion?: None
Contusion?: Moderate
Hematoma-local bleeding into tissue?: None
Strain- Sprain- Tear (Connective tissue injury)?: None
Crepitus with movement?: No
Joint instability?: No
Malalignment/deformity?: No
Range of motion: Limited
Distal skin color and temperature: normal-warm & good color
Capillary Refill: normal
Normal distal neurovascular exam?: Yes
Phy Exam
General Physical Exam
General Presentation: well appearing and no apparent distress
General age: appears stated age
General Skin: warm and dry
General Habitus: normal
General Mental: alert
General Hydration: appears well hydrated
Pulmonary Exam
Pulmonary Exam: no respiratory distress
Chest Wall: Right anterior: tenderness and Right lateral: tenderness
Neurological Exam
Neurological Exam: alert, oriented x3, CN II-XII intact and no sensory deficits
Musculoskeletal Exam
Musculoskeletal Exam: neuro vasc intact
Skin Exam
Skin Exam: normal color and warm/dry
Psychiatric Exam
Psychiatric Exam: normal mood/affect
Injury Course
Orders/Labs/Results
Orders:
Orders
07/31/23 16:46
CR Ribs-right 3 Vw W/pa Chest* Urgent
Comment:
Reason For Exam: fall
*Radiology
Radiology exam reviewed: radiology read reviewed
*Pulse Oximetry
Patient hypoxic: no
*Critical Care Note
Total Time (30-74mins, 75-104mins- exclusive of procedures): Not Applicable
ED Attending Note
-
Portions of this chart may have been created with voice recognition software.� Occasional wrong word or��sound alike� substitutions may have occurred due to the inherent limitations of voice recognition software.
Discharge Plan
Departure
Patient Disposition: Home (Routine Discharge)
Date of Disposition: 07/31/23
Time of Disposition: 17:37
Patient with high blood pressure during this ER visit?: No
Condition: Good
Covid-19: Not Applicable
Discharge Problem:
Chest wall contusion
Instructions: Contusion (DC), Using Cold for Pain
Prescriptions:
No Action
donepezil 10 mg Tablet
10 mg PO HS
carvedilol 6.25 mg Tablet
6.25 mg PO BID
famotidine 40 mg Tablet
40 mg PO HS
aspirin 81 mg Tablet,Delayed Release (Dr/Ec)
81 mg PO DAILY Qty: 30 0RF
prasugrel 5 mg tablet
5 mg PO DAILY Qty: 30 11RF
Farxiga 10 mg Tablet
10 mg PO DAILY Qty: 30 0RF
pantoprazole [Protonix] 40 mg tablet,delayed release (DR/EC)
40 mg PO DAILY Qty: 14 0RF
atorvastatin 40 mg tablet
40 mg PO HS
nitroglycerin 0.4 mg Tablet, Sublingual
0.4 mg sublingual [id number] PRN (Reason: chest pain) Qty: 30 0RF
Patient Comments:
pts states that nitro was last taken in 2022
furosemide 40 mg tablet
40 mg PO DAILY
amlodipine 2.5 mg Tablet
2.5 mg PO DAILY 30 Days Qty: 30 0RF
isosorbide mononitrate 60 mg Tablet Extended Release 24 Hr
60 mg PO DAILY 30 Days Qty: 30 0RF
cyanocobalamin (vitamin B-12) 1,000 mcg Tablet
1,000 mcg PO DAILY
ferrous sulfate 325 mg (65 mg iron) Tablet
325 mg PO DAILY
cephalexin 500 mg capsule
500 mg PO TID 3 Days Qty: 9 0RF
Referrals:
Ngozi Avila MD [Family Provider] - Follow up in 2-3 days
Interventions
Interventions:
*Risk Screen - Suicide Last Done: 07/31/23 16:32
*General Assessment Last Done: 07/31/23 16:32
*Neglect/Abuse Screening Last Done: 07/31/23 16:32
*ED COVID-19 Vaccine History Last Done: 07/31/23 17:23
ED-Musculoskeletal Assessment Last Done: 07/31/23 17:23
ED- Neurological Assessment Last Done: 07/31/23 17:23
ED-Skin Assessment Last Done: 07/31/23 17:23
== END 2023-07-31 18:14 | disposition home or self-care (01) ==
LOC: EMR 16:29
PROVIDERS: EMERGENCY PHYSICIAN Emergency Medicine; FAMILY PHYSICIAN Family Medicine
DX: S20.211A Contusion of right front wall of thorax, initial encounter (principal); W18.39XA Other fall on same level, initial encounter; Y93.64 Activity, baseball; I25.10 Atherosclerotic heart disease of native coronary artery without angina pectoris; F03.90 Unspecified dementia, unspecified severity, without behavioral disturbance, psychotic disturbance, mood disturbance, and anxiety; I11.0 Hypertensive heart disease with heart failure; I50.9 Heart failure, unspecified; E78.00 Pure hypercholesterolemia, unspecified; E11.9 Type 2 diabetes mellitus without complications; I73.9 Peripheral vascular disease, unspecified; M19.90 Unspecified osteoarthritis, unspecified site; I25.2 Old myocardial infarction; Z85.46 Personal history of malignant neoplasm of prostate; Z86.718 Personal history of other venous thrombosis and embolism; Z87.891 Personal history of nicotine dependence; Z95.1 Presence of aortocoronary bypass graft; Z95.5 Presence of coronary angioplasty implant and graft; Z79.84 Long term (current) use of oral hypoglycemic drugs; Z90.49 Acquired absence of other specified parts of digestive tract
CPT/HCPCS: 99283; 71101

== ENCOUNTER → 2023-09-05 07:56 | Outpatient (REF) | payer OTHER, SELFPAY | LOC: RAD 07:56 | PROVIDERS: ATTENDING PHYSICIAN Physician Assistant; FAMILY PHYSICIAN Family Medicine | DX: I73.9 Peripheral vascular disease, unspecified (principal) | CPT/HCPCS: 93922; 93925 ==

== ENCOUNTER → 2023-11-11 15:44 | Outpatient (REF) | payer OTHER, SELFPAY | LOC: HWRCS 15:44 | PROVIDERS: ATTENDING PHYSICIAN Internal Medicine Cardiovascular Disease; FAMILY PHYSICIAN Family Medicine | DX: I50.1 Left ventricular failure, unspecified (principal) | CPT/HCPCS: 93306 ==

== ENCOUNTER → 2023-12-05 12:06 | Outpatient (REF) | payer OTHER, SELFPAY | LOC: RAD 12:06 | PROVIDERS: ATTENDING PHYSICIAN Family Medicine | DX: M54.2 Cervicalgia (principal) | CPT/HCPCS: 72052 ==

== ENCOUNTER → 2024-02-27 07:53 | Outpatient (REF) | payer OTHER, SELFPAY | LOC: RAD 07:53 | PROVIDERS: ATTENDING PHYSICIAN Surgery Vascular Surgery; FAMILY PHYSICIAN Family Medicine | DX: I73.9 Peripheral vascular disease, unspecified (principal) | CPT/HCPCS: 93922; 93925 ==

== ENCOUNTER → 2024-09-11 09:21 | Outpatient (REF) | payer OTHER, SELFPAY | LOC: RAD 09:21 | PROVIDERS: ATTENDING PHYSICIAN Surgery Vascular Surgery; FAMILY PHYSICIAN Family Medicine | DX: I73.9 Peripheral vascular disease, unspecified (principal) | CPT/HCPCS: 93922; 93925 ==

== ENCOUNTER 2024-09-22 07:39 | Emergency (ER) | payer OTHER, SELFPAY ==
[2024-09-22 07:51] VITALS: BP 210/88
--- NOTE | 2024-09-22 09:24 | ED.GENMED ---
History of Present Illness
General
Chief Complaint: Rectal Bleeding
Source: patient
Exam Limitations: none
Time Seen by Provider: 09/22/24 09:01
Nursing documentation reviewed up to this point in time: agreed with
History of Present Illness
History of Present Illness:
79-year-old male with a history of CHF, CAD, on Effient and Lasix, mild dementia, history of lower GI bleed, history of prostate cancer status postradiation
Presents for painless hematuria starting last night around 9:30 PM. says the urine looks like a dark brown or red color but has no clots. He voided a total of 4 times since then and all have been bloody. There is no clots in the toilet. He
had 1 stool last night that did not appear bloody but was in water that was red or dark tea colored. They do not actually believe that the stool has blood in it. Patient has had a UTI causing hemorrhagic cystitis before. He has not seen a
urologist in years, he felt was followed by an [place] urologist for his prostate cancer.
Patient's had no fever, lightheadedness, abdominal pain, back pain, vomiting. He feels like he can void and is not in retention.
Past History
Past History
ED Past Medical History: CAD, Cancer, HTN, Hypercholesterolemia, NIDDM and Other (DVT, PAD)
ED Past Surgical History: Cardiac (CABG 1993), Cholecystectomy and Other (Right femoral endarterectomy, vascular stenting bilateral lower extremities. Hernia repair)
Social History
Tobacco: Former smoker
Alcohol: Occasional
Drug: None
Personal:
Living: with family
Employment: Employed
Family History
Family History: Other (Noncontributory)
Review of Systems
Review of Systems
Allergies reviewed?: Yes
All Other Systems: Not applicable
Phy Exam
Physical Exam
Physical Exam:
GENERAL: Alert , in no apparent distress
EYE: pupils equal and reactive
NECK: Supple
ENT: o/p clr, mmm.
CARDIAC: Regular rate and rhythm .
LUNGS: Clear breath sounds bilaterally, no acute respiratory distress, no wheezes/rales/rhonchi
ABDOMEN: Soft, without focal tenderness, no r/g, no cvat, normal bowel sounds
Bladder not palpable
NEUROLOGICAL: Alert and oriented, no focal neuro deficits
SKIN: Warm and dry, skin intact.
MUSCULOSKELETAL: No edema, well perfused. neg ross's sign
PSYCH: Normal and appropriate interaction.
Course
Orders/Labs/Results
Orders:
Orders
09/22/24 09:21
Bladder Scan- Treatment ONCE
09/22/24 09:27
Complete Blood Count/With Diff Urgent
Comprehensive Metabolic Panel Urgent
PTT Urgent
Prothrombin Time Urgent
09/22/24 10:30
Urinalysis Reflex To Culture Urgent
Date Specimen was Collected: 09/22/24
Time Specimen was Collected: 10:23
Urine Microscopic Reflex Cult Urgent
Urine Culture Urgent
STEVEN Source: U
Specimen Description:
Date Specimen was Collected: 09/22/24
Time Specimen was Collected: 10:23
09/22/24 11:14
Cefdinir [Omnicef] 300 mg PO NOW STA
Abnormal Lab Results
09/22/24 09/22/24
09:27 10:30
RBC 4.39 L 10^6/uL
(4.70-6.10)
Hgb 12.5 L g/dL
(13.0-18.0)
Hct 37.8 L %
(39.0-52.0)
Carbon Dioxide 33 H mmol/L
(22-30)
Glucose 126 H mg/dl
(70-99)
Total Protein 5.5 L g/dl
(6.3-8.2)
Albumin 3.2 L g/dl
(3.5-5.0)
Ur Occult Blood Reflex 4+ A
(Negative)
Leukocyte Esterase Rfl 1+ A
(Negative)
Urine RBC >100 A /HPF
(0-2)
Urine Bacteria (Reflex) Few A
(Negative)
Urine Glucose 4+ A
(Negative)
Urine Albumin (Reflex) 3+ A
(Neg - Trace)
09/22/24 09:27
09/22/24 09:27
Vital Signs
Initial and Last Documented VS:
Initial Vital Signs
Temp Pulse Resp BP Pulse Ox
36.4 C 60 22 210/88 99
09/22/24 07:51 09/22/24 07:51 09/22/24 07:51 09/22/24 07:51 09/22/24 07:51
Last Documented Vital Signs
Temp Pulse Resp BP Pulse Ox
36.4 C 71 15 187/71 99
09/22/24 07:51 09/22/24 11:30 09/22/24 11:30 09/22/24 11:30 09/22/24 07:51
MDM/Problems Addressed
Differential Diagnosis Includes:
hematuria, cystitis, less likey kdiney stone
MDM/Problems Addressed:
79-year-old male with a history of CHF, CAD, peripheral arterial disease on Placidyl presents for hematuria starting last night. He does feel little bit of dysuria when he urinates but otherwise has no pain in his abdomen or back. He has had no
nausea vomiting, diarrhea, fever or chills. Patient has had gross hematuria previously related to a UTI. He has not seen a urologist in years since his prostate cancer was treated with radiation. There was some question of whether he had blood in
his stool but his does not believe so and he took a photo of the stool which showed brown stool in tea colored water which is likely from his urine. Patient's urine here is grossly bloody but translucent and not thick with clots. He has no
retention with a PVR of 17 mL. His white count is normal, platelet count normal, hemoglobin improved from baseline, creatinine normal. I offered to rectal exam which the patient declined.
Urine is not significantly positive for anything other than blood but it does have slight bacteria so will empirically treat with cefdinir twice a day. Patient skipped his a.m. dose of plasurgrel
Urology follow-up recommended
*Critical Care Note
Total Time (30-74mins, 75-104mins- exclusive of procedures): Not Applicable
ED Attending Note
-
Portions of this chart may have been created with voice recognition software.� Occasional wrong word or��sound alike� substitutions may have occurred due to the inherent limitations of voice recognition software.
Discharge Plan
Departure
Patient Disposition: Home (Routine Discharge)
Date of Disposition: 09/22/24
Time of Disposition: 11:34
Patient with high blood pressure during this ER visit?: Yes
Condition: Fair
Covid-19: Not Applicable
Discharge Problem:
Hematuria
Instructions: Blood in the urine (hematuria) - ED discharge instructions
Prescriptions:
New
cefdinir 300 mg capsule
300 mg PO BID Qty: 14 0RF
No Action
donepezil 10 mg Tablet
10 mg PO HS
carvedilol 6.25 mg Tablet
6.25 mg PO BID
famotidine 40 mg Tablet
40 mg PO HS
aspirin 81 mg Tablet,Delayed Release (Dr/Ec)
81 mg PO DAILY Qty: 30 0RF
prasugrel HCl 5 mg tablet
5 mg PO DAILY Qty: 30 11RF
Farxiga 10 mg Tablet
10 mg PO DAILY Qty: 30 0RF
pantoprazole [Protonix] 40 mg tablet,delayed release (DR/EC)
40 mg PO DAILY Qty: 14 0RF
atorvastatin 40 mg tablet
40 mg PO HS
nitroglycerin 0.4 mg Tablet, Sublingual
0.4 mg sublingual [id number] PRN (Reason: chest pain) Qty: 30 0RF
Patient Comments:
pts states that nitro was last taken in 2022
furosemide 40 mg tablet
40 mg PO DAILY
amlodipine 2.5 mg Tablet
2.5 mg PO DAILY 30 Days Qty: 30 0RF
isosorbide mononitrate 60 mg Tablet Extended Release 24 Hr
60 mg PO DAILY 30 Days Qty: 30 0RF
cyanocobalamin (vitamin B-12) 1,000 mcg Tablet
1,000 mcg PO DAILY
ferrous sulfate 325 mg (65 mg iron) Tablet
325 mg PO DAILY
cephalexin 500 mg capsule
500 mg PO TID 3 Days Qty: 9 0RF
Referrals:
Loi Myrick MD [Active] - Follow up in 5-7 days
Ngozi Avila MD [Family Provider] -
Activity Restrictions/Additional Instructions:
We are treating your blood in your urine with antibiotics for presumed infection. Take cefdinir twice a day for 7 days. Please make sure you are drinking water. It is important that your urine is rechecked in the next week or so to make sure that
the infection and blood clears up. Should you have worsening bleeding with clots or difficulty voiding you need to return immediately. Also return for fever, chills, vomiting, back pain, abdominal pain. It is important that you see a urologist,
if you start to have persistent blood in your urine you may need a cystoscopy to evaluate for cancer.
Interventions
Interventions:
*Risk Screen - Suicide Last Done: 09/22/24 08:02
*General Assessment Last Done: 09/22/24 09:29
*Neglect/Abuse Screening Last Done: 09/22/24 08:02
*ED- Fall Risk Assessment Last Done: 09/22/24 09:29
*ED COVID-19 Vaccine History Last Done: 09/22/24 09:29
*Nursing Disposition Last Done: 09/22/24 11:59
[facility]-Bqajfz-Hqusocnxnm Assessment Last Done: 09/22/24 09:31
ED- Cardiac Assessment Last Done: 09/22/24 09:31
ED- Pulmonary Assessment Last Done: 09/22/24 09:31
Discharge Date and Time
Discharge Date/Time: 09/22/24 11:59
Print Language: VIET[place]ESE
[2024-09-22 09:26] VITALS: BP 186/77; BMI 28.1
[2024-09-22 09:36] LABS: % Basophils 1.2 % (0-2); % Eosinophils 5.6 % (0-6); % Immature Granulocytes 0.2 % (0-0.5); % Lymphocytes 29.2 % (20.5-51.1); % Monocytes 8.5 % (1.7-9.3); % Neutrophils 55.3 % (42.2-75.2); Absolute Basophils 0.1 10^3/uL (0-0.2); Absolute Eosinophils 0.3 10^3/uL (0-0.7); Absolute Lymphocytes 1.8 10^3/uL (1.2-3.4); Absolute Monocytes 0.5 10^3/uL (0.1-0.6); Absolute Neutrophils 3.3 10^3/uL (1.4-6.5); Hematocrit 37.8 % (39.0-52.0); Hemoglobin 12.5 g/dL (13.0-18.0); Mean Corp Hgb Conc. 33.1 g/dL (33.0-37.0); Mean Corpuscular Hgb 28.5 pg (27.0-31.0); Mean Corpuscular Volume 86.1 fL (80.0-94.0); Mean Platelet Volume 10.4 fL (7.4-10.4); Nucleated Red Blood Cells % 0 % (-); Platelet Count 263 10^3/uL (130-400); Red Blood Cell Count 4.39 10^6/uL (4.70-6.10); Red Cell Dist. Width 12.8 % (11.5-14.5)
[2024-09-22 09:49] LABS: APTT 28.6 Sec (23.4-35.0); INR 1.02; PT 13.7 Sec (11.4-14.6)
[2024-09-22 09:52] LABS: ALT (SGPT) 27 U/L (0-50); AST (SGOT) 17 U/L (17-59); Albumin 3.2 g/dl (3.5-5.0); Alkaline Phosphatase 107 U/L (38-126); Blood Urea Nitrogen 15 mg/dl (9-20); Calcium 9.1 mg/dl (8.4-10.2); Carbon Dioxide 33 mmol/L (22-30); Chloride 105 mmol/L (98-107); Estimated Creatinine Clearance 65 ml/min; Glucose 126 mg/dl (70-99); Potassium 3.7 mmol/L (3.5-5.1); Sodium 141 mmol/L (135-145); Total Bilirubin 0.8 mg/dl (0.2-1.3); Total Protein 5.5 g/dl (6.3-8.2); eGFR > 60.00
[2024-09-22 10:00] VITALS: BP 175/82
[2024-09-22 10:49] LABS: Urine Albumin 3+ (Neg - Trace); Urine Bilirubin Negative (Negative); Urine Character Slightly Cloudy (Clear); Urine Color Red; Urine Glucose 4+ (Negative); Urine Ketone Negative (Negative); Urine Leukocyte 1+ (Negative); Urine Nitrite Negative (Negative); Urine Occult Blood 4+ (Negative); Urine Specific Gravity 1.015 (<1.030); Urine Urobilinogen Negative (Neg - 1+); Urine pH 6.5 (5.0-9.0)
[2024-09-22 10:59] LABS: Urine Bacteria Few (Negative); Urine Red Blood Cell >100 /HPF (0-2); Urine Squamous Cell 0-2 /LPF (Few); Urine White Cell 0-2 /HPF (0-5)
[2024-09-22] MEDS: OMNICEF 300 MG PO (11:25)
[2024-09-22 11:30] VITALS: BP 187/71
--- NOTE | 2024-09-22 12:23 | EDRN ---
PT reports not having taken his BP medications today and will do so as soon as he gets home.
== END 2024-09-22 11:59 | disposition home or self-care (01) ==
LOC: EMR 07:39
PROVIDERS: Physician Assistant; EMERGENCY PHYSICIAN Emergency Medicine; FAMILY PHYSICIAN Family Medicine
DX: R31.9 Hematuria, unspecified (principal); R82.71 Bacteriuria; I11.0 Hypertensive heart disease with heart failure; I50.9 Heart failure, unspecified; E11.9 Type 2 diabetes mellitus without complications; E78.00 Pure hypercholesterolemia, unspecified; F03.A0 Unspecified dementia, mild, without behavioral disturbance, psychotic disturbance, mood disturbance, and anxiety; I25.10 Atherosclerotic heart disease of native coronary artery without angina pectoris; Z86.718 Personal history of other venous thrombosis and embolism; Z87.891 Personal history of nicotine dependence; Z95.1 Presence of aortocoronary bypass graft; Z95.5 Presence of coronary angioplasty implant and graft; Z85.46 Personal history of malignant neoplasm of prostate; Z92.3 Personal history of irradiation; Z87.440 Personal history of urinary (tract) infections; Z79.01 Long term (current) use of anticoagulants; Z79.899 Other long term (current) drug therapy
CPT/HCPCS: 99283; 80053; 81003; 81015; 85025; 85610; 85730; 87086

== ENCOUNTER → 2024-09-24 09:37 | Outpatient (REF) | payer OTHER, SELFPAY | LOC: MRI 09:37 | PROVIDERS: ATTENDING PHYSICIAN Family Medicine | DX: R51.9 Headache, unspecified (principal) | CPT/HCPCS: 70553; A9575 ==

== ENCOUNTER → 2024-12-24 08:39 | Outpatient (REF) | payer OTHER, SELFPAY | LOC: RAD 08:39 | PROVIDERS: ATTENDING PHYSICIAN Registered Nurse; FAMILY PHYSICIAN Family Medicine | DX: I73.9 Peripheral vascular disease, unspecified (principal) | CPT/HCPCS: 93922; 93925 ==